=== PATIENT | female | born 1950 | race Caucasian/White ===

== ENCOUNTER 2018-06-14 18:15 | Observation (INO) ==
--- NOTE | 2018-06-14 18:50 | Emergency Department Note ---
Disposition Clinical Impression: Atrial flutter Qualifiers: Atrial flutter type: unspecified Qualified Code(s): I48.92 - Unspecified atrial flutter Chest pain Qualifiers: Chest pain type: unspecified Qualified Code(s): R07.9 - Chest pain, unspecified Disposition: Admitted As Inpatient Condition: Good Referrals: Juan C Hawk DO [Primary Care Provider] - Forms: ED Satisfaction Letter Time of Disposition: 21:09 Arrhythmia/Palpitations HPI - General Chief Complaint: ED Arrhythmia/Palpitations Stated Complaint: A-Fib Time Seen by Provider: 06/14/18 18:36 Source: patient Mode of arrival: ambulatory Limitations: no limitations Nursing Notes Reviewed: Yes Vital Signs Reviewed: Yes - History of Present Illness HPI Narrative: Patient is a 67-year-old female with past medical history of hypertension. She presents today due to new onset A. fib/A flutter. Patient states that she has been having episodes intermittently of chest discomfort, left-sided, occur with both exertion and at rest, described as pressure with no radiation, lasted for a few minutes and then goes away. She is also been monitoring her blood pressure and states that her blood pressure has been high. She has been feeling generally fatigued. She went to urgent care today for evaluation, she states that she had a urinalysis and was told that she had a UTI. On screening EKG, she was found to have new onset A. fib/A flutter. She denies any current chest discomfort, shortness breath, nausea, vomiting, fevers, diarrhea, abdominal pain. Denies any productive cough or URI symptoms. Is not currently on any blood thinners. Denies any previous [place] history, stent placement. - Related Data Home Medications Medication Instructions Recorded Confirmed Citalopram Hydrobromide 40 mg PO DAILY 03/24/17 06/14/18 [Citalopram HBr] Naproxen [Naprosyn] 500 mg PO BID 03/24/17 06/14/18 Rosuvastatin [Crestor] 20 mg PO HS 03/24/17 06/14/18 Triamterene/Hydrochlorothiazid 1 cap PO DAILY 03/24/17 06/14/18 [Dyazide 37.5-25 Capsule] Iron Polysaccharide Complex [Pro 180 mg PO DAILY 06/14/18 06/14/18 Fe] Lisinopril [Zestril] 10 mg PO DAILY 06/14/18 06/14/18 Metformin HCl [Metformin HCl] 1,000 mg PO BID 06/14/18 06/14/18 Metoprolol [Lopressor] 25 mg PO BID 06/14/18 06/14/18 Omeprazole [PriLOSEC] 20 mg PO BID 06/14/18 06/14/18 Allergies Allergy/AdvReac Type Severity Reaction Status Date / Time No Known Allergies Allergy Verified 06/14/18 19:42 All systems ED: reviewed and negative except as stated. Constitutional: Denies: fever Cardiovascular: Reports: chest pain. Denies: palpitations Respiratory: Reports: dyspnea. Denies: cough, sputum production Gastrointestinal: Denies: abdominal pain, nausea, vomiting, diarrhea Integumentary: Denies: rash Neurological: Denies: headache, weakness, numbness, paresthesias Psychiatric: Denies: anxiety Past Medical History - Past Medical History Attestation: Yes The following information was validated with the patient. Source: patient Medical history: Reports: asthma, diabetes, GERD, hyperlipidemia, hypertension Surgical history: Reports: cholecystectomy, hysterectomy, orthopedic, other Psychiatric history: Reports: depression - Social History Smoking Status: Never smoker Smokeless Tobacco Status: No Alcohol use: Reports: none Drug use: Reports: none Physical Exam - General Limitations: no limitations General appearance: alert - Head Head exam: atraumatic, normocephalic, normal inspection - Eye Eye exam: Present: normal appearance, PERRL, EOMI - ENT ENT exam: normal exam, normal oropharynx, mucous membranes moist - Neck Neck exam: Present: normal inspection, full ROM, trachea midline - Chest Chest inspection: Present: normal inspection, symmetric chest wall rise - Respiratory Respiratory exam: Present: normal lung sounds bilaterally - Cardiovascular Cardiovascular exam: Present: normal rhythm, irregular rhythm, normal heart sounds - Abdominal Exam Abdominal exam: Present: soft, Non-Tender. Absent: tenderness, distention, guarding, rebound, rigidity - Extremities Exam Extremities exam: Present: normal inspection, full ROM. Absent: tenderness, pedal edema - Neurological Exam Neurological exam: Present: alert, oriented X3 - Expanded Neurological Exam Coma Scale Eye Opening: Spontaneous Coma Scale Motor Response: Obeys Commands Coma Scale Verbal Response: Oriented Coma Scale Total: 15 - Psychiatric Psychiatric exam: Present: normal affect, normal mood - Skin Skin exam: Present: warm, dry, intact, normal color Course Course Narrative: Physical workup shows negative troponin, negative urinalysis, no major electrolyte abnormality. EKG shows a flutter with no acute ST elevation or depression. Patient currently asymptomatic. Chest x-ray negative for any acute cardio pulmonary process. We will admit the patient for further care at this time. Xarelto given in the ER. Currently rate controlled. Vital Signs Temperature 97.7 F 06/14/18 18:26 Pulse Rate 102 06/14/18 18:26 Respiratory Rate 20 06/14/18 18:26 Blood Pressure 166/98 06/14/18 18:26 O2 Sat by Pulse Oximetry 97 06/14/18 18:26 Temperature 97.7 F 06/14/18 18:26 Pulse Rate 90 06/14/18 20:34 Respiratory Rate 20 06/14/18 20:34 Blood Pressure 164/106 06/14/18 20:34 O2 Sat by Pulse Oximetry 97 06/14/18 20:34 Oxygen Delivery Oxygen Delivery Room Air Arrhythmia/Palpitations - [facility] Narrative Medical decision making narrative: Physical workup shows negative troponin, negative urinalysis, no major electrolyte abnormality. EKG shows a flutter with no acute ST elevation or depression. Patient currently asymptomatic. Chest x-ray negative for any acute cardio pulmonary process. We will admit the patient for further care at this time. Xarelto given in the ER. Currently rate controlled. - Medical Records Medical records reviewed: Yes I reviewed the patient's medical records. - Lab Data Lab results reviewed: Yes I reviewed the patient's lab results. Result diagrams: 06/14/18 19:07 06/14/18 19:07 Lab Results 06/14/18 06/14/18 06/14/18 Range/Units 19:07 19:07 19:07 WBC 8.9 (4.3-11.1) K/mcL RBC 4.19 (3.82-4.97) M/mcL Hgb 10.2 L (11.5-15.4) g/dL Hct 32.1 L (35.3-44.9) % MCV 76.6 L (83.0-100.0) fL MCH 24.3 L (28.0-33.3) pg MCHC 31.8 (31.6-35.5) g/dL RDW 15.8 H (11.5-14.5) % Plt Count 225 (140-400) K/mcL MPV 9.8 (9.4-12.4) fL Immature Gran % 0.3 (0-4) % Seg Neutrophils % 62.5 % Lymphocytes % 24.3 % Monocytes % 9.6 % Eosinophils % 2.6 % Basophils % 0.7 % Neutrophils # 5.6 (1.6-8.9) K/mcL Lymphocytes # 2.2 (0.6-4.6) K/mcL Monocytes # 0.9 (0.0-1.3) K/mcL Eosinophils # 0.2 (0.0-0.6) K/mcL Basophils # 0.1 (0.0-0.2) K/mcL PT 11.3 (9.4-12.1) Seconds INR 1.0 APTT 33.8 (26.0-36.0) Seconds Sodium 138 (136-145) mEq/L Potassium 3.4 L (3.5-5.1) mEq/L Chloride 101 (98-107) mEq/L Carbon Dioxide 25 (23-29) mEq/L BUN 13 (8-23) mg/dL Creatinine 0.67 (0.60-1.20) mg/dL Est GFR ( Amer) > 60 (> 60) Est GFR (Non-Af Amer) > 60 (> 60) BUN/Creatinine Ratio 19 (6-26) Glucose 124 H (70-105) mg/dL Calculated Osmolality 288 (280-300) Calcium 9.6 (8.6-10.3) mg/dL Troponin I < 0.03 (< 0.04) ng/mL TSH 3.417 (0.340-5.600) mcIU/mL Urine Color (Yellow) Urine Clarity (Clear) Urine pH (5.0-8.0) pH Units Ur Specific [place] (1.010-1.025) Urine Protein (Neg-Trace) mg/dL Urine Glucose (UA) (Normal) mg/dL Urine Ketones (Negative) mg/dL Urine Blood (Negative) Urine Nitrite (Negative) Urine Bilirubin (Negative) Urine Urobilinogen (Normal) mg/dL Ur Leukocyte Esterase (Negative) Urine Microscopic RBC (0-3) per hpf Urine Microscopic WBC (0-3) per hpf Ur Squamous Epith Cells (None-Few) per lpf Urine Bacteria (None-Few) per hpf Hyaline Casts (None-Few) per lpf Ur Culture Indicated? (NO) 06/14/18 Range/Units 19:58 WBC (4.3-11.1) K/mcL RBC (3.82-4.97) M/mcL Hgb (11.5-15.4) g/dL Hct (35.3-44.9) % MCV (83.0-100.0) fL MCH (28.0-33.3) pg MCHC (31.6-35.5) g/dL RDW (11.5-14.5) % Plt Count (140-400) K/mcL MPV (9.4-12.4) fL Immature Gran % (0-4) % Seg Neutrophils % % Lymphocytes % % Monocytes % % Eosinophils % % Basophils % % Neutrophils # (1.6-8.9) K/mcL Lymphocytes # (0.6-4.6) K/mcL Monocytes # (0.0-1.3) K/mcL Eosinophils # (0.0-0.6) K/mcL Basophils # (0.0-0.2) K/mcL PT (9.4-12.1) Seconds INR APTT (26.0-36.0) Seconds Sodium (136-145) mEq/L Potassium (3.5-5.1) mEq/L Chloride (98-107) mEq/L Carbon Dioxide (23-29) mEq/L BUN (8-23) mg/dL Creatinine (0.60-1.20) mg/dL Est GFR ( Amer) (> 60) Est GFR (Non-Af Amer) (> 60) BUN/Creatinine Ratio (6-26) Glucose (70-105) mg/dL Calculated Osmolality (280-300) Calcium (8.6-10.3) mg/dL Troponin I (< 0.04) ng/mL TSH (0.340-5.600) mcIU/mL Urine Color Yellow (Yellow) Urine Clarity Clear (Clear) Urine pH 6.0 (5.0-8.0) pH Units Ur Specific [place] 1.011 (1.010-1.025) Urine Protein Negative (Neg-Trace) mg/dL Urine Glucose (UA) Normal (Normal) mg/dL Urine Ketones Negative (Negative) mg/dL Urine Blood Negative (Negative) Urine Nitrite Negative (Negative) Urine Bilirubin Negative (Negative) Urine Urobilinogen Normal (Normal) mg/dL Ur Leukocyte Esterase Trace H (Negative) Urine Microscopic RBC 0-3 (0-3) per hpf Urine Microscopic WBC 0-3 (0-3) per hpf Ur Squamous Epith Cells Many H (None-Few) per lpf Urine Bacteria None Seen (None-Few) per hpf Hyaline Casts None Seen (None-Few) per lpf Ur Culture Indicated? NO. A (NO) - Radiology Data Radiology results reviewed: Yes I reviewed the patient's radiology results. - EKG Data EKG attestation: Yes I reviewed and interpreted this EKG. EKG results narrative: 06/14/2018 18:16. A flutter. Rate 94. QRS 93. QTC 406. Normal axis. No acute ST elevation or depression. S.B.A.R. - S.B.A.R. Situation: Demographics, MOA Background: Presenting Complaint, Relevant PMH, Meds, & Allergies Assessment: Vital Signs, Course and respsone to treatment, Exam Concerns, Patient/Family Expectation, Pertinant Lab Results Recommendation: Barrier(s) to disposition, Recommendation based on pending studies, treatments, or consults S.B.A.R. Report Given to: Dr. Marquez
--- NOTE | 2018-06-14 19:13 | Emergency Department Note ---
Disposition Clinical Impression: Atrial flutter Qualifiers: Atrial flutter type: unspecified Qualified Code(s): I48.92 - Unspecified atrial flutter Chest pain Qualifiers: Chest pain type: unspecified Qualified Code(s): R07.9 - Chest pain, unspecified Disposition: Admitted As Inpatient Condition: Good General Adult HPI - General Chief complaint: ED Arrhythmia/Palpitations Stated complaint: A-Fib Time Seen by Provider: 06/14/18 18:36 Source: patient Mode of arrival: ambulatory Limitations: no limitations - History of Present Illness Pain Scale: 8 - Related Data Home Medications Medication Instructions Recorded Confirmed Citalopram Hydrobromide 40 mg PO DAILY 03/24/17 06/14/18 [Citalopram HBr] Naproxen [Naprosyn] 500 mg PO BID 03/24/17 06/14/18 Rosuvastatin [Crestor] 20 mg PO HS 03/24/17 06/14/18 Triamterene/Hydrochlorothiazid 1 cap PO DAILY 03/24/17 06/14/18 [Dyazide 37.5-25 Capsule] Iron Polysaccharide Complex [Pro 180 mg PO DAILY 06/14/18 06/14/18 Fe] Lisinopril [Zestril] 10 mg PO DAILY 06/14/18 06/14/18 Metformin HCl [Metformin HCl] 1,000 mg PO BID 06/14/18 06/14/18 Metoprolol [Lopressor] 25 mg PO BID 06/14/18 06/14/18 Omeprazole [PriLOSEC] 20 mg PO BID 06/14/18 06/14/18 Allergies Allergy/AdvReac Type Severity Reaction Status Date / Time No Known Allergies Allergy Verified 06/14/18 19:42 Past Medical History - Past Medical History Medical history: Reports: asthma, diabetes, GERD, hyperlipidemia, hypertension Surgical history: Reports: cholecystectomy, hysterectomy, orthopedic, other Psychiatric history: Reports: depression - Social History Smoking Status: Never smoker Smokeless Tobacco Status: No Alcohol use: Reports: none Drug use: Reports: none Physical Exam - General Limitations: no limitations General appearance: alert Course Vital Signs Temperature 97.7 F 06/14/18 18:26 Pulse Rate 102 06/14/18 18:26 Respiratory Rate 20 06/14/18 18:26 Blood Pressure 166/98 06/14/18 18:26 O2 Sat by Pulse Oximetry 97 07/30/18 18:26 Temperature 97.7 F 06/14/18 18:26 Pulse Rate 74 06/14/18 22:12 Respiratory Rate 12 06/14/18 22:12 Blood Pressure 164/94 06/14/18 22:12 O2 Sat by Pulse Oximetry 99 06/14/18 22:12 Oxygen Delivery Oxygen Delivery Room Air Medical Decision Making - Lab Data Result diagrams: 06/14/18 19:07 06/14/18 19:07 Lab Results 06/14/18 06/14/18 06/14/18 Range/Units 19:07 19:07 19:07 WBC 8.9 (4.3-11.1) K/mcL RBC 4.19 (3.82-4.97) M/mcL Hgb 10.2 L (11.5-15.4) g/dL Hct 32.1 L (35.3-44.9) % MCV 76.6 L (83.0-100.0) fL MCH 24.3 L (28.0-33.3) pg MCHC 31.8 (31.6-35.5) g/dL RDW 15.8 H (11.5-14.5) % Plt Count 225 (140-400) K/mcL MPV 9.8 (9.4-12.4) fL Immature Gran % 0.3 (0-4) % Seg Neutrophils % 62.5 % Lymphocytes % 24.3 % Monocytes % 9.6 % Eosinophils % 2.6 % Basophils % 0.7 % Neutrophils # 5.6 (1.6-8.9) K/mcL Lymphocytes # 2.2 (0.6-4.6) K/mcL Monocytes # 0.9 (0.0-1.3) K/mcL Eosinophils # 0.2 (0.0-0.6) K/mcL Basophils # 0.1 (0.0-0.2) K/mcL PT 11.3 (9.4-12.1) Seconds INR 1.0 APTT 33.8 (26.0-36.0) Seconds Sodium 138 (136-145) mEq/L Potassium 3.4 L (3.5-5.1) mEq/L Chloride 101 (98-107) mEq/L Carbon Dioxide 25 (23-29) mEq/L BUN 13 (8-23) mg/dL Creatinine 0.67 (0.60-1.20) mg/dL Est GFR ( Amer) > 60 (> 60) Est GFR (Non-Af Amer) > 60 (> 60) BUN/Creatinine Ratio 19 (6-26) Glucose 124 H (70-105) mg/dL Calculated Osmolality 288 (280-300) Calcium 9.6 (8.6-10.3) mg/dL Troponin I < 0.03 (< 0.04) ng/mL TSH 3.417 (0.340-5.600) mcIU/mL Urine Color (Yellow) Urine Clarity (Clear) Urine pH (5.0-8.0) pH Units Ur Specific [place] (1.010-1.025) Urine Protein (Neg-Trace) mg/dL Urine Glucose (UA) (Normal) mg/dL Urine Ketones (Negative) mg/dL Urine Blood (Negative) Urine Nitrite (Negative) Urine Bilirubin (Negative) Urine Urobilinogen (Normal) mg/dL Ur Leukocyte Esterase (Negative) Urine Microscopic RBC (0-3) per hpf Urine Microscopic WBC (0-3) per hpf Ur Squamous Epith Cells (None-Few) per lpf Urine Bacteria (None-Few) per hpf Hyaline Casts (None-Few) per lpf Ur Culture Indicated? (NO) 06/14/18 Range/Units 19:58 WBC (4.3-11.1) K/mcL RBC (3.82-4.97) M/mcL Hgb (11.5-15.4) g/dL Hct (35.3-44.9) % MCV (83.0-100.0) fL MCH (28.0-33.3) pg MCHC (31.6-35.5) g/dL RDW (11.5-14.5) % Plt Count (140-400) K/mcL MPV (9.4-12.4) fL Immature Gran % (0-4) % Seg Neutrophils % % Lymphocytes % % Monocytes % % Eosinophils % % Basophils % % Neutrophils # (1.6-8.9) K/mcL Lymphocytes # (0.6-4.6) K/mcL Monocytes # (0.0-1.3) K/mcL Eosinophils # (0.0-0.6) K/mcL Basophils # (0.0-0.2) K/mcL PT (9.4-12.1) Seconds INR APTT (26.0-36.0) Seconds Sodium (136-145) mEq/L Potassium (3.5-5.1) mEq/L Chloride (98-107) mEq/L Carbon Dioxide (23-29) mEq/L BUN (8-23) mg/dL Creatinine (0.60-1.20) mg/dL Est GFR ( Amer) (> 60) Est GFR (Non-Af Amer) (> 60) BUN/Creatinine Ratio (6-26) Glucose (70-105) mg/dL Calculated Osmolality (280-300) Calcium (8.6-10.3) mg/dL Troponin I (< 0.04) ng/mL TSH (0.340-5.600) mcIU/mL Urine Color Yellow (Yellow) Urine Clarity Clear (Clear) Urine pH 6.0 (5.0-8.0) pH Units Ur Specific [place] 1.011 (1.010-1.025) Urine Protein Negative (Neg-Trace) mg/dL Urine Glucose (UA) Normal (Normal) mg/dL Urine Ketones Negative (Negative) mg/dL Urine Blood Negative (Negative) Urine Nitrite Negative (Negative) Urine Bilirubin Negative (Negative) Urine Urobilinogen Normal (Normal) mg/dL Ur Leukocyte Esterase Trace H (Negative) Urine Microscopic RBC 0-3 (0-3) per hpf Urine Microscopic WBC 0-3 (0-3) per hpf Ur Squamous Epith Cells Many H (None-Few) per lpf Urine Bacteria None Seen (None-Few) per hpf Hyaline Casts None Seen (None-Few) per lpf Ur Culture Indicated? NO. A (NO) Attestation Statement - Attestation Attestation: I examined this patient and my medical decision-making was reviewed with the Resident Physician. I agree with the documented findings, disposition and treatment plan as described except to the extent set forth below. Patient presents to the emergency department in atrial fibrillation. Patient was going to see her primary doctor because her blood pressure been running high. They found that she was in new onset A. fib. Patient states she started feeling bad on . She is having "pain in her left boob", tingling in her left arm and generalized weakness. Nausea and vomiting. No diarrhea. No fever. No cough. She is not having any neuro symptoms at this time. Examination shows her neurologically intact 5 out of 5 strength in bilateral upper extremities. Heart rate controlled but irregular. Plan. Patient is a new onset A. fib. Cardiac workup and admission. Patient is neurologically intact at this time.
[2018-06-14 19:28] LABS: Basophils # 0.1 K/mcL (0.0-0.2); Basophils % 0.7 %; Eosinophils # 0.2 K/mcL (0.0-0.6); Eosinophils % 2.6 %; Hematocrit 32.1 % (35.3-44.9); Hemoglobin 10.2 g/dL (11.5-15.4); Immature Granulocytes % 0.3 % (0-4); Lymphocytes # 2.2 K/mcL (0.6-4.6); Lymphocytes % 24.3 %; Mean Corpuscular HGB Conc 31.8 g/dL (31.6-35.5); Mean Corpuscular Hemoglobin 24.3 pg (28.0-33.3); Mean Corpuscular Volume 76.6 fL (83.0-100.0); Mean Platelet Volume 9.8 fL (9.4-12.4); Monocytes # 0.9 K/mcL (0.0-1.3); Monocytes % 9.6 %; Neutrophils # 5.6 K/mcL (1.6-8.9); Platelet Count 225 K/mcL (140-400); Red Blood Count 4.19 M/mcL (3.82-4.97); Red Cell Distribution Width 15.8 % (11.5-14.5); Segmented Neutrophils % 62.5 %
[2018-06-14 19:30] LABS: Prothrombin Time 11.3 Seconds (9.4-12.1)
[2018-06-14 19:33] LABS: Activated Partial Thrombo Time 33.8 Seconds (26.0-36.0)
[2018-06-14 19:45] LABS: BUN/Creatinine Ratio 19 (6-26); Blood Urea Nitrogen 13 mg/dL (8-23); Calcium 9.6 mg/dL (8.6-10.3); Carbon Dioxide 25 mEq/L (23-29); Chloride 101 mEq/L (98-107); Glucose 124 mg/dL (70-105); Osmolality,Calculated 288 (280-300); Potassium 3.4 mEq/L (3.5-5.1); Sodium 138 mEq/L (136-145); eGFR For Non-African Americans > 60 (> 60)
[2018-06-14 19:53] LABS: Thyroid Stimulating Hormone 3.417 mcIU/mL (0.340-5.600)
[2018-06-14 20:07] LABS: Bilirubin,Urine Negative (Negative); Blood,Urine Negative (Negative); Clarity,Urine Clear (Clear); Color,Urine Yellow (Yellow); Glucose,Urine (UA) Normal (Normal); Ketones,Urine Negative (Negative); Leukocyte Esterase,Urine Trace (Negative); Nitrite,Urine Negative (Negative); Protein,Urine Negative (Neg-Trace); Specific Gravity,Urine 1.011 (1.010-1.025); Urobilinogen,Urine Normal (Normal)
[2018-06-14 20:09] LABS: Bacteria,Urine None Seen per hpf (None-Few); Hyaline Casts,Urine None Seen per lpf (None-Few); RBC,Urine 0-3 per hpf (0-3); Squamous Epithelial Cell,Urine Many per lpf (None-Few); WBC,Urine 0-3 per hpf (0-3)
[2018-06-14 20:32] LABS: Troponin I < 0.03 ng/mL (< 0.04)
[2018-06-14] MEDS ORDERED: *HR* Rivaroxaban 10 MG TABLET PO ONE (21:00)
[2018-06-14] MEDS ORDERED: *HR* Metoprolol 5 MG/5 ML VIAL IVP STA (22:03)
[2018-06-14] MEDS ORDERED: *HR* Metoprolol 5 MG/5 ML VIAL IVP PRN (22:04)
[2018-06-14] MEDS ORDERED: Dextrose Gel 15 GM/37.5 ML TUBE PO PRN ×2 (22:20)
[2018-06-14] MEDS ORDERED: D5% in Water 1,000 ML IVC PRN (22:20)
[2018-06-14] MEDS ORDERED: *HR* Dextrose 50 % in Water (Syg) 50 ML SYRINGE IVP PRN (22:20)
[2018-06-14] MEDS ORDERED: Insulin LISPRO 300 UNITS/3 ML VIAL SQ SCH (22:30)
[2018-06-14] MEDS ORDERED: traMADol 50 MG TABLET PO PRN (23:37)
[2018-06-14] MEDS ORDERED: Acetaminophen 325 MG TABLET PO PRN (23:37)
[2018-06-14] MEDS ORDERED: Naloxone 0.4 MG/ML INJ IVP PRN (23:37)
--- NOTE | 2018-06-14 23:56 | Internal Med History&Physical ---
Date of Encounter: 06/14/18 Time of Encounter: 22:57 Internal Medicine - H&P: HPI Chief complaint: "Told to come in for high blood pressure and Afib" Admitted From: Emergency Dept Plans for Post Hospital Care: Home History of present illness: Ms. Rg is a 67 year old female who presented to ED at request of clinic physician due to elevated blood pressure and atrial fibrillation. She states that she has been feeling "bad" since last . She thought that her blood pressure was elevated. She states that she was also having some headache and "sick to stomach." She had some mild chest pain today. She was out-of- town over the weekend, and decided to go into clinic after getting back home. She was noted to have hypertension and new onset atrial fibrillation in clinic today. She was told to come to ED here. In the ED, patient's HR was 102 on arrival. It subsequently remained in the 90s. BP ranged in 140-160s/90-100s. EKG showed atrial fibrillation with rate of 94; no ST elevation. Initial troponin was WNL. CXR showed no acute cardiopulmonary process. She had mild hypokalemia to 3.4; she states that she has a chronic history of this. She was started on xarelto in the ED. I was asked to admit patient for new onset atrial fibrillation. At the time of my examination, patient denies fever, chills, chest pain, SOB, nausea, vomiting, abdominal pain, changes in bladder, or changes in bowels. She does have a mild headache at this time. She has no other complaints. Past Med Surg Social Fam HX - Past Medical History Medical history: asthma, diabetes, GERD, hyperlipidemia, hypertension Additional medical history: Anemia. Polyneuropathy. Idiopathic peripheral neuropathy. Cervical Radiculapathy Psychiatric history: depression - Past Surgical History Surgical History: cholecystectomy, hysterectomy, orthopedic, other Additional surgical history: knee replacement,tonsillectomy - Social History Smoking Status: Never smoker Smokeless Tobacco Status: No Alcohol use: none Drug use: none - Additional Family History Additional family history: No significant family history per patient. Internal Medicine - H&P: Meds Citalopram Hydrobromide [Citalopram HBr] 40 mg PO DAILY 03/24/17 [History] Naproxen [Naprosyn] 500 mg PO BID 03/24/17 [History] Rosuvastatin [Crestor] 20 mg PO HS 03/24/17 [History] Triamterene/Hydrochlorothiazid [Dyazide 37.5-25 Capsule] 1 cap PO DAILY [History] Iron Polysaccharide Complex [Pro Fe] 180 mg PO DAILY 06/14/18 [History] Lisinopril [Zestril] 10 mg PO DAILY 06/14/18 [History] Metformin HCl [Metformin HCl] 1,000 mg PO BID 06/14/18 [History] Metoprolol [Lopressor] 25 mg PO BID 06/14/18 [History] Omeprazole [PriLOSEC] 20 mg PO BID 06/14/18 [History] 3 Allergy/AdvReac Type Severity Reaction Status Date / Time No Known Allergies Allergy Verified 06/14/18 19:42 All Systems PM: A 10-system review of systems was performed and is negative for pertinent findings except as documented above in the HPI. - Constitutional Vitals: Temp Pulse Resp BP Pulse Ox 97.7 F 74 12 164/94 99 06/14/18 18:26 06/14/18 22:12 06/14/18 22:12 06/14/18 22:12 06/14/18 22:12 General appearance: Present: cooperative, A&O X 3, pleasant, no acute distress, obese, answers questions appropriately - Head Head exam: Present: atraumatic, normocephalic - Eye Eye exam: Present: EOMI, PERRL. Absent: conjunctival injection, nystagmus, scleral icterus - ENT ENT exam: Present: mucous membranes moist, normal external ear exam, normal oropharynx - Neck Neck exam general surgery: Present: supple, trachea midline. Absent: lymphadenopathy, tenderness, thyromegaly - Respiratory Respiratory exam: Present: CTAB. Absent: accessory muscle use, rales, rhonchi, wheezes Additional comments: Normal WOB - Cardiovascular Cardiovascular exam: Present: RRR, +S1, +S2. Absent: diastolic murmur, gallop, rubs, systolic murmur Additional comments: No BLE edema - GI/Abdominal GI/Abdominal exam: Present: normal bowel sounds, soft. Absent: distended, hepatomegaly, mass, splenomegaly, tenderness - Neurological Exam Neurological exam: Present: alert, CN II-XII intact, oriented X3, no focal deficits, strengths equal and symetr throughout. Absent: motor sensory deficit , facial droop, speech deficit - Psychiatric Psychiatric exam: Present: normal affect, normal mood. Absent: agitated, anxious, depressed - Skin Skin exam: Present: dry, intact, warm. Absent: cyanosis, rash Internal Med - H&P Results - Labs CBC & Chem 7: 06/14/18 19:07 06/14/18 19:07 - VTE Documentation of Mechanical Device: Intermittent pneumatic compression device Contraindication No Overlap Therapy: Admin of oral Factor Xa Inhibitor - Assessment and plan (1) Atrial fibrillation Current Visit: Yes Status: Acute Assessment and plan: Patient with new onset atrial fibrillation. Rate is controlled at this time. Patient is asymptomatic except mild headache. Admit for observation with telemetry. She was started on xarelto in the ED; we will continue this for anticoagulation. Initial troponin was WNL; we will trend x 3 given patient's previous symptom of chest pain. Continue home PO metoprolol; this dose may need to be adjusted based on her heart rate. Start IV metoprolol PRN for tachycardia/HTN. Continue home anti-hypertensives. We will repeat EKG in AM. Obtain ECHO in AM. Consider cardiology consult if needed. Will consult social work to determine insurance coverage of NOAC. Repeat labwork in AM. Qualifiers: Atrial fibrillation type: unspecified Qualified Code(s): I48.91 - Unspecified atrial fibrillation (2) Chest pain Current Visit: Yes Status: Acute Assessment and plan: Resolved. Continue telemetry. Trend troponin x 3. Obtain ECHO in AM. Continue supplemental oxygen and pain control PRN. Qualifiers: Chest pain type: unspecified Qualified Code(s): R07.9 - Chest pain, unspecified (3) Hypertension Current Visit: Yes Status: Chronic Assessment and plan: BP improved. Continue home anti-hypertensives. Start metoprolol IV PRN tachycardia/HTN as per above. Monitor vitals closely. Qualifiers: Hypertension type: essential hypertension Qualified Code(s): I10 - Essential (primary) hypertension (4) HLD (hyperlipidemia) Current Visit: Yes Status: Chronic Assessment and plan: Continue home medications. Qualifiers: Hyperlipidemia type: mixed hyperlipidemia Qualified Code(s): E78.2 - Mixed hyperlipidemia (5) Depression Current Visit: Yes Status: Chronic Assessment and plan: Continue home medications. Qualifiers: Depression Type: other depression Qualified Code(s): F32.89 - Other specified depressive episodes (6) Diabetes mellitus type II, controlled, with no complications Current Visit: Yes Status: Chronic Assessment and plan: Hold home PO medications. Start accuchecks and low dose SSI QID AC/HS. Start cardiac/diabetic diet. Qualifiers: Diabetes mellitus emt intermediate insulin use: without halfway use Qualified Code(s): E11.9 - Type 2 diabetes mellitus without complications (7) GERD (gastroesophageal reflux disease) Current Visit: Yes Status: Chronic Assessment and plan: Continue home medications. Qualifiers: Esophagitis presence: without esophagitis Qualified Code(s): K21.9 - Gastro -esophageal reflux disease without esophagitis (8) Iron deficiency anemia Current Visit: Yes Status: Chronic Assessment and plan: Continue home medications. Qualifiers: Iron deficiency anemia type: unspecified iron deficiency Qualified Code(s) : D50.9 - Iron deficiency anemia, unspecified (9) DVT prophylaxis Current Visit: Yes Status: Acute Assessment and plan: Start SCDs. Continue xarelto as per above. - Time Spent With Patient Total time spent is greater than 50% in coordination of care (as documented) at patient's floor/unit and/or counseling patient: less than 15 minutes
[2018-06-15 00:47] LABS: Basophils # 0.1 K/mcL (0.0-0.2); Basophils % 0.5 %; Eosinophils # 0.3 K/mcL (0.0-0.6); Eosinophils % 3.1 %; Hemoglobin 10.7 g/dL (11.5-15.4); Immature Granulocytes % 0.3 % (0-4); Lymphocytes # 2.7 K/mcL (0.6-4.6); Lymphocytes % 26.6 %; Mean Corpuscular HGB Conc 31.5 g/dL (31.6-35.5); Mean Corpuscular Hemoglobin 24.2 pg (28.0-33.3); Mean Corpuscular Volume 76.7 fL (83.0-100.0); Monocytes # 0.9 K/mcL (0.0-1.3); Monocytes % 8.8 %; Neutrophils # 6.3 K/mcL (1.6-8.9); Platelet Count 231 K/mcL (140-400); Red Blood Count 4.43 M/mcL (3.82-4.97); Red Cell Distribution Width 15.8 % (11.5-14.5); Segmented Neutrophils % 60.7 %
[2018-06-15 01:06] LABS: Chol/HDL Ratio 2.5 (0-4.9); Magnesium 1.2 mg/dL (1.6-2.6)
[2018-06-15 01:07] LABS: BUN/Creatinine Ratio 18 (6-26); Blood Urea Nitrogen 13 mg/dL (8-23); Calcium 9.4 mg/dL (8.6-10.3); Carbon Dioxide 25 mEq/L (23-29); Chloride 101 mEq/L (98-107); Glucose 91 mg/dL (70-105); Osmolality,Calculated 286 (280-300); Potassium 3.3 mEq/L (3.5-5.1); Sodium 138 mEq/L (136-145); eGFR For Non-African Americans > 60 (> 60)
[2018-06-15] MEDS: Insulin LISPRO 300 UNITS/3 ML VIAL SQ SCH ×2 (08:17→12:08)
[2018-06-15] MEDS ORDERED: Iron Polysaccharide Complex 150 MG CAPSULE PO SCH (09:00)
--- NOTE | 2018-06-15 12:26 | Discharge Summary ---
- NOTES TO OUTPATIENT PROVIDER Notes to Outpatient Provider: Follow up with PCP for INR check, new diagnosis of Afib with hypomag and hypok. Electrolytes replaced inpatient, HR controlled on patient's home dose of lopressor. TSH was WNL. ECHO was WNL Orders not resulted at time of discharge: Pending orders 06/14/18 22:00 Drug Screen, Urine [UCHEM] Stat 06/15/18 06:00 ECG 12 lead ECG [ECG] AM 0600 06/15/18 13:00 Troponin I Q6H 06/16/18 04:00 Basic Metabolic Panel AM 0400 Magnesium AM 0400 Date of Encounter: 06/15/18 Time of Encounter: 12:25 - Discharge Diagnosis (1) Chest pain Priority: Primary Status: Acute Qualifiers: Chest pain type: unspecified Qualified Code(s): R07.9 - Chest pain, unspecified (2) Atrial fibrillation Priority: Primary Status: Acute Qualifiers: Atrial fibrillation type: unspecified Qualified Code(s): I48.91 - Unspecified atrial fibrillation (3) Hypertension Priority: Secondary Status: Chronic Qualifiers: Hypertension type: essential hypertension Qualified Code(s): I10 - Essential (primary) hypertension (4) HLD (hyperlipidemia) Priority: Secondary Status: Chronic Qualifiers: Hyperlipidemia type: mixed hyperlipidemia Qualified Code(s): E78.2 - Mixed hyperlipidemia (5) Depression Priority: Secondary Status: Chronic Qualifiers: Depression Type: other depression Qualified Code(s): F32.89 - Other specified depressive episodes (6) Diabetes mellitus type II, controlled, with no complications Priority: Secondary Status: Chronic Qualifiers: Diabetes mellitus extermination supervisor insulin use: without extermination supervisor use Qualified Code(s): E11.9 - Type 2 diabetes mellitus without complications (7) GERD (gastroesophageal reflux disease) Priority: Secondary Status: Chronic Qualifiers: Esophagitis presence: without esophagitis Qualified Code(s): K21.9 - Gastro -esophageal reflux disease without esophagitis (8) Iron deficiency anemia Priority: Secondary Status: Chronic Qualifiers: Iron deficiency anemia type: unspecified iron deficiency Qualified Code(s) : D50.9 - Iron deficiency anemia, unspecified (9) DVT prophylaxis Priority: Primary Status: Acute Hospital course: Ms. Rg is a 67 year old female with PMH of GERD, DM, HLD, HTN who was placed on observation for newly diagnosed atrial fibrillation Patient had presented to her own PCP for complains of palpitations and chest pain and was found to be in Afib and had uncontrolled blood pressure. She also had concerns for possible UTI In the ED, patient's HR was 102 on arrival. It subsequently remained in the 90s without intervention. BP ranged in 140-160s/90-100s. EKG showed atrial fibrillation with rate of 94; no ST elevation. Further work up including 3 sets of troponin were WNL. CXR showed no acute cardiopulmonary process. She had mild hypokalemia to 3.4; she states that she has a chronic history of this. She was started on xarelto in the ED. She was placed on observation and further work up including a urinalysis was negative She did have mild hypomagnessemia and hypokalemia-electrolytes were replaced Patient's HR remained controlled on her home medications ECHO done showed preserved EF with no valvular abnormalities and normal wall motion Patient was started on Xarelto but per pharmacy, co-pay was 350 USD per month Patient agreed to use Warfarin for anticoagulation , recommend follow up with PCP within the next 5 days for INR check Her other chronic medical conditions remained stable. Plan of care discussed and patient verbalized understanding, discharged home in clinically and hemodynamically stable condition Discharge discussed with: patient, nurse, case management - Time Spent with Patient Total time spent providing and/or coordinating discharge services: Greater than 30 minutes - Discharge Medications Prescriptions: Warfarin [Coumadin] 4 mg PO 1800 #8 tablet Home Medications: Citalopram Hydrobromide [Citalopram HBr] 40 mg PO DAILY 03/24/17 [History] Naproxen [Naprosyn] 500 mg PO BID 03/24/17 [History] Rosuvastatin [Crestor] 20 mg PO HS 03/24/17 [History] Triamterene/Hydrochlorothiazid [Dyazide 37.5-25 Capsule] 1 cap PO DAILY [History] Iron Polysaccharide Complex [Pro Fe] 180 mg PO DAILY 06/14/18 [History] Lisinopril [Zestril] 10 mg PO DAILY 06/14/18 [History] Metformin HCl [Metformin HCl] 1,000 mg PO BID 06/14/18 [History] Metoprolol [Lopressor] 25 mg PO BID 06/14/18 [History] Omeprazole [PriLOSEC] 20 mg PO BID 06/14/18 [History] Warfarin [Coumadin] 4 mg PO 1800 #8 tablet 06/15/18 [Rx] Allergies/Adverse Reactions: 3 Allergy/AdvReac Type Severity Reaction Status Date / Time No Known Allergies Allergy Verified 06/14/18 19:42 Date of admission: 06/14/18 21:01 Primary care physician: Juan C Hawk DO Consults: 06/14/18 23:41 Consult to Brake Lining Driller [CONS] Routine Reason for SW Consult: Find out what novel anticoagulant her insurance covers (currently started on xarelto). Thanks. Discharging clinician: Dawood Landaverde Anticipated date of discharge: 06/15/18 - Constitutional Vitals: Temp Pulse Resp BP Pulse Ox 97.8 F 73 19 147/94 95 06/15/18 11:38 06/15/18 11:38 06/15/18 11:38 06/15/18 11:38 06/15/18 11:38 General appearance: Present: cooperative, A&O X 3, pleasant, no acute distress, obese, answers questions appropriately - Head Head exam: Present: atraumatic, normocephalic - Eye Eye exam: Present: PERRL, conjuntiva pink, sclera anicteric Pupils: Present: PERRL - Neck Neck exam general surgery: Present: supple, trachea midline. Absent: lymphadenopathy - Respiratory Respiratory exam: Present: CTAB. Absent: accessory muscle use, rales, rhonchi, wheezes - Cardiovascular Cardiovascular exam: Present: irregular rhythm, +S1, +S2. Absent: diastolic murmur, gallop, rubs, systolic murmur - GI/Abdominal GI/Abdominal exam: Present: normal bowel sounds, soft, no peritoneal signs. Absent: distended, tenderness - Extremities Exam Extremities exam: Present: warm, radial pulses palpable and symmetrical. Absent : calf tenderness, cyanotic, pedal edema - Neurological Exam Neurological exam: Present: CN II-XII intact, oriented X3, no focal deficits. Absent: pronater drift, facial droop, speech deficit - Skin Skin exam: Present: dry, intact - Patient Status Disposition: Home, Self-Care Condition: Good Functional capacity at discharge: independent ambulation Overall status at discharge: patient is back to baseline - Discharge Instructions Follow Up With: Juan C Hawk DO [Primary Care Provider] - 06/24/18 1:00 pm (Please follow up as schedule....) - Diet and Activity Activity: resume usual activities as tolerated Diet: low salt diet - VTE Documentation of Mechanical Device: Intermittent pneumatic compression device Contraindication No Overlap Therapy: Admin of oral Factor Xa Inhibitor
[2018-06-15 16:38] VITALS: BP 146/90
[2018-06-15] MEDS ORDERED: *HR* Rivaroxaban 10 MG TABLET PO SCH (17:00)
--- NOTE | 2018-06-16 20:41 | Electrocardiograph Report ---
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
== END 2018-06-15 18:45 | disposition home or self-care (01) ==
LOC: 2ANU 18:15 → EMEROO 18:15 → SUATTDRO 21:01 → 2ANU 22:31
PROVIDERS: ADMIT Family Medicine; ATTEND Internal Medicine

== ENCOUNTER 2018-08-16 23:18 | Observation (INO) ==
[2018-08-17] MEDS ORDERED: Naloxone 0.4 MG/ML INJ IVP PRN (02:38)
[2018-08-17 03:55] LABS: Basophils # 0.1 K/mcL (0.0-0.2); Basophils % 0.7 %; Eosinophils # 0.2 K/mcL (0.0-0.6); Eosinophils % 1.8 %; Hematocrit 36.9 % (35.3-44.9); Immature Granulocytes % 0.4 % (0-4); Lymphocytes # 2.6 K/mcL (0.6-4.6); Lymphocytes % 21.9 %; Mean Corpuscular HGB Conc 32.5 g/dL (31.6-35.5); Mean Corpuscular Hemoglobin 26.1 pg (28.0-33.3); Mean Corpuscular Volume 80.4 fL (83.0-100.0); Mean Platelet Volume 9.6 fL (9.4-12.4); Monocytes # 0.9 K/mcL (0.0-1.3); Monocytes % 7.9 %; Platelet Count 233 K/mcL (140-400); Red Blood Count 4.59 M/mcL (3.82-4.97); Red Cell Distribution Width 16.1 % (11.5-14.5); Segmented Neutrophils % 67.3 %
[2018-08-17 04:01] LABS: INR 1.9; Prothrombin Time 21.9 Seconds (9.4-12.1)
[2018-08-17 04:17] LABS: Alanine Aminotransferase 9 Units/L (7-52); Albumin 3.7 g/dL (3.5-5.7); Albumin/Globulin Ratio 1.3 (1.1-2.2); Alkaline Phosphatase 42 Units/L (34-104); Aspartate Amino Transferase 11 Units/L (13-39); BUN/Creatinine Ratio 28 (6-26); Bilirubin,Total 0.4 mg/dL (0.3-1.0); Blood Urea Nitrogen 17 mg/dL (8-23); Calcium 9.1 mg/dL (8.6-10.3); Carbon Dioxide 29 mEq/L (23-29); Chloride 100 mEq/L (98-107); Globulin 2.8 g/dL (2.4-3.5); Glucose 119 mg/dL (70-105); Magnesium 1.4 mg/dL (1.6-2.6); Osmolality,Calculated 287 (280-300); Potassium 3.1 mEq/L (3.5-5.1); Sodium 137 mEq/L (136-145); Total Protein 6.5 g/dL (6.4-8.9); eGFR For Non-African Americans > 60 (> 60)
--- NOTE | 2018-08-17 08:02 | Internal Med History&Physical ---
Date of Encounter: 08/17/18 Time of Encounter: 05:00 Internal Medicine - H&P: HPI Chief complaint: Near Syncope History of present illness: Ms. Rg is a 68 year old female with past medical history of GERD, diabetes, hyperlipidemia, hypertension and recently diagnosed atrial fibrillation currently on anticoagulation, who initially presented to [facility] due to near syncopal event. Patient states that she was at work around 4 PM and while standing she suddenly started feeling diaphoretic, nauseous and dizziness described as the room spinning. She subsequently sat down, had a soft drink at her symptoms improved. She attempted to get back to work and again shortly thereafter experienced similar symptoms. Patient denies any recent cough, fever , chills, diarrhea or dysuria. She states she has been eating and drinking normally. She does state that this has happened before at which time she did fall on pass out briefly. Past Med Surg Social Fam HX - Past Medical History Medical history: asthma, diabetes, GERD, hyperlipidemia, hypertension Additional medical history: Anemia. Polyneuropathy. Idiopathic peripheral neuropathy. Cervical Radiculapathy Psychiatric history: depression - Past Surgical History Surgical History: cholecystectomy, hysterectomy, orthopedic, other Additional surgical history: knee replacement,tonsillectomy - Social History Smoking Status: Never smoker Smokeless Tobacco Status: No Alcohol use: none Drug use: none - Family History Father Adopted: [place]: ART Family Member Ethnicity: Non- Living Status: Age at : 62 Cause of : [place] Hx Family Cardiac Disorders: Yes ([place]) Hx Family Respiratory Disorders: No Hx Family Cancer: No Hx Family GI Disorders: No Hx Family Genitourinary Disorders: No Hx Family Endocrine Disorder: No Hx Family Musculoskeletal Disorders: No Hx Family Neuromuscular Disorders: No Hx Family Neurologic Disorders: No Hx Family HEENT Disorders: No Hx Family Autoimmune Disorders: No Hx Family Reproductive Disorders: No Hx Family Psychosocial Disorders: No Hx Family Medical Disorders: No Internal Medicine - H&P: Meds Citalopram Hydrobromide [Citalopram HBr] 40 mg PO DAILY 03/24/17 [History] Rosuvastatin [Crestor] 20 mg PO HS 03/24/17 [History] Triamterene/Hydrochlorothiazid [Dyazide 37.5-25 Capsule] 1 cap PO DAILY [History] Iron Polysaccharide Complex [Pro Fe] 180 mg PO DAILY 06/14/18 [History] Lisinopril [Zestril] 10 mg PO DAILY 06/14/18 [History] Metformin HCl [Metformin HCl] 1,000 mg PO BID 06/14/18 [History] Metoprolol [Lopressor] 25 mg PO BID 06/14/18 [History] Omeprazole [PriLOSEC] 20 mg PO BID 06/14/18 [History] Warfarin [Coumadin] 4 mg PO 1800 #8 tablet 06/15/18 [Rx] 3 Allergy/AdvReac Type Severity Reaction Status Date / Time No Known Allergies Allergy Verified 06/14/18 19:42 All Systems PM: A 10-system review of systems was performed and is negative for pertinent findings except as documented above in the HPI. - Constitutional Constitutional: no chills, no fever(s), no night sweats - EENT Eyes: no change in vision, no discharge, no pain, no photophobia Ears: no ear discharge, no ear pain, no tinnitus Nose, mouth and throat: no dysphagia, no nasal discharge, no neck pain, no sore throat - Cardiovascular Cardiovascular ROS IM: no chest pain, no diaphoresis, no dyspnea, no lightheadedness, no palpitations, no syncope - Respiratory Respiratory: no cough, no dyspnea, no wheezing, no excessive phlegm production - Gastrointestinal Gastrointestinal: no abdominal pain, no diarrhea, no hematemesis, no hematochezia, no melena, no nausea, no vomiting - Genitourinary Genitourinary: no change in urinary stream, no dysuria, no flank pain, no hematuria - Musculoskeletal Musculoskeletal ROS IM: no numbness, no tingling - Integumentary Integumentary IM: no rash, no unusual bruising - Neurological Neurological ROS: no confusion, no convulsions, no focal weakness, no numbness, no tingling, no tremor(s) - Hematologic/Lymphatic Hematologic/Lymphatic: no easy bruising - Constitutional Vitals: Temp Pulse Resp BP Pulse Ox 97.9 F 97 15 160/93 94 08/17/18 07:13 08/17/18 07:13 08/17/18 07:13 08/17/18 07:13 08/17/18 07:13 Exam: General: Alert and oriented 3; lying in bed in no acute distress Skin:Normal color, no rash, no lesions. HEENT:EOM, pupils equal, round and reactive. Cardiovascular:Normal S1 & S2, no rubs, murmurs or gallops. No JVD. Pulse regular. Lungs:Normal breath sounds, no wheezes or crackles. Abdomen:Soft, non-tender, no rigidity. Extremities:No deformity, no edema or tenderness, no joint swelling or clubbing. Neurological:Normal cognition and motor skills. Pulses:Carotid and radial pulses normal +2. Rest of the physical exam is non contributory Internal Med - H&P Results - Labs CBC & Chem 7: 08/17/18 03:40 08/17/18 03:40 Labs: Short CBC 08/17/18 Range/Units 03:40 WBC 11.9 H (4.3-11.1) K/mcL Hgb 12.0 (11.5-15.4) g/dL Hct 36.9 (35.3-44.9) % Plt Count 233 (140-400) K/mcL Neutrophils # 8.0 (1.6-8.9) K/mcL BMP 08/17/18 03:40 Sodium 137 Potassium 3.1 L Chloride 100 Carbon Dioxide 29 BUN 17 Creatinine 0.60 Glucose 119 H Calcium 9.1 Liver Function 08/17/18 Range/Units 03:40 Total Bilirubin 0.4 (0.3-1.0) mg/dL AST 11 L (13-39) Units/L ALT 9 (7-52) Units/L Alkaline Phosphatase 42 (34-104) Units/L Albumin 3.7 (3.5-5.7) g/dL - Assessment and plan (1) Atrial fibrillation Current Visit: No Status: Acute Assessment and plan: Recent history of new onset atrial fibrillation rate controlled currently on anticoagulation who presents with near syncopal event. Found to have a heart rate in the 130s when she initially presented to [facility]. She would receive an additional 12.5 g of Lopressor and fluids. Repeat EKG shows atrial fibrillation with a rate of 96. Patient was placed on telemetry and heart rate consistently below 100. Currently asymptomatic. Patient has a mildly elevated white blood cell count however we have no evidence of an infection source nor a history to suggest a source of illness. At this time rate is controlled on telemetry. Would consider increasing dose of Lopressor. Qualifiers: Atrial fibrillation type: unspecified Qualified Code(s): I48.91 - Unspecified atrial fibrillation (2) Leukocytosis Current Visit: Yes Status: Acute Assessment and plan: Elevated white blood cell count of 11.9. No clear source of infection at this time nor does patient endorse any symptoms to suggest an illness. May be due to stress in the setting of near syncope. We will monitor for now. Qualifiers: Leukocytosis type: unspecified Qualified Code(s): D72.829 - Elevated white blood cell count, unspecified (3) Diabetes mellitus type II, controlled, with no complications Current Visit: No Status: Chronic Assessment and plan: Continue blood glucose checks. Sliding scale insulin. Qualifiers: Diabetes mellitus creative producer insulin use: without creative producer use Qualified Code(s): E11.9 - Type 2 diabetes mellitus without complications (4) HLD (hyperlipidemia) Current Visit: No Status: Chronic Assessment and plan: Continue home statin. Qualifiers: Hyperlipidemia type: mixed hyperlipidemia Qualified Code(s): E78.2 - Mixed hyperlipidemia (5) Hypertension Current Visit: No Status: Chronic Assessment and plan: Continue home antihypertensives. Blood pressure stable. Qualifiers: Hypertension type: essential hypertension Qualified Code(s): I10 - Essential (primary) hypertension (6) DVT prophylaxis Current Visit: No Status: Acute Assessment and plan: On warfarin. Check INR. - Time Spent With Patient Total time spent is greater than 50% in coordination of care (as documented) at patient's floor/unit and/or counseling patient:
[2018-08-17] MEDS ORDERED: D5% in Water 1,000 ML IVC PRN (08:08)
[2018-08-17] MEDS ORDERED: Dextrose Gel 15 GM/37.5 ML TUBE PO PRN ×2 (08:08)
[2018-08-17] MEDS ORDERED: *HR* Dextrose 50 % in Water (Syg) 50 ML SYRINGE IVP PRN (08:08)
[2018-08-17] MEDS: Insulin LISPRO 300 UNITS/3 ML VIAL SQ SCH ×3 (09:18→16:50)
[2018-08-17] MEDS: Potassium Chloride Elixir 20 MEQ/15 ML UDC PO SCH (09:41)
[2018-08-17] MEDS: (Iron Polysaccharide Complex [Pro Fe] 180 MG) PO SCH (09:41)
[2018-08-17] MEDS: *HR* Warfarin 4 MG TABLET PO SCH (16:50)
[2018-08-18] MEDS: Potassium Chloride Elixir 20 MEQ/15 ML UDC PO SCH (08:20)
[2018-08-18] MEDS: (Iron Polysaccharide Complex [Pro Fe] 180 MG) PO SCH (08:21)
[2018-08-18] MEDS: Insulin LISPRO 300 UNITS/3 ML VIAL SQ SCH ×3 (08:21→16:46)
[2018-08-18 09:34] LABS: Basophils # 0.1 K/mcL (0.0-0.2); Basophils % 0.8 %; Eosinophils # 0.5 K/mcL (0.0-0.6); Eosinophils % 4.6 %; Hematocrit 38.2 % (35.3-44.9); Hemoglobin 12.6 g/dL (11.5-15.4); Immature Granulocytes % 0.3 % (0-4); Lymphocytes # 2.4 K/mcL (0.6-4.6); Lymphocytes % 21.7 %; Mean Corpuscular Hemoglobin 26.3 pg (28.0-33.3); Mean Corpuscular Volume 79.7 fL (83.0-100.0); Monocytes # 0.7 K/mcL (0.0-1.3); Neutrophils # 7.3 K/mcL (1.6-8.9); Platelet Count 261 K/mcL (140-400); Red Blood Count 4.79 M/mcL (3.82-4.97); Red Cell Distribution Width 16.6 % (11.5-14.5); Segmented Neutrophils % 66.6 %
[2018-08-18 09:51] LABS: BUN/Creatinine Ratio 24 (6-26); Blood Urea Nitrogen 16 mg/dL (8-23); Calcium 9.2 mg/dL (8.6-10.3); Carbon Dioxide 27 mEq/L (23-29); Chloride 99 mEq/L (98-107); Glucose 214 mg/dL (70-105); Osmolality,Calculated 288 (280-300); Potassium 3.8 mEq/L (3.5-5.1); Sodium 135 mEq/L (136-145); eGFR For Non-African Americans > 60 (> 60)
--- NOTE | 2018-08-18 11:54 | Internal Med Progress Note ---
Hospitalist Progress Note - Encounter Date of Encounter: 08/18/18 Time of Encounter: 11:50 - Subjective Interval History: Patient seen and examined in the room, she denies vertigo overnight. She has no headache, numbness, or weakness. No fever, chills, or night sweats. No hearing or loss or tinnitus. - Exam Vitals: Temp Pulse Resp BP Pulse Ox 97.6 F 80 14 163/91 97 08/18/18 03:10 08/18/18 07:03 08/18/18 07:03 08/18/18 07:03 08/18/18 07:03 Exam: General: Alert and oriented 3; lying in bed in no acute distress Skin:Normal color, no rash, no lesions. HEENT:EOM, pupils equal, round and reactive. Cardiovascular:Normal S1 & S2, no rubs, murmurs or gallops. No JVD. Pulse regular. Lungs:Normal breath sounds, no wheezes or crackles. Abdomen:Soft, non-tender, no rigidity. Extremities:No deformity, no edema or tenderness, no joint swelling or clubbing. Neurological:Normal cognition and motor skills. Pulses:Carotid and radial pulses normal +2. Rest of the physical exam is non contributory - Assessment and Plan (1) Vertigo Current Visit: Yes Status: Acute Assessment and Plan: 68-year-old female with history of diabetes, hypertension, hyperlipidemia, and atrial fibrillation presented with one episode of vertigo. She reported several similar episodes with less severity in the past. She described the event as a spinning sensation rather than lightheadedness/fainting. - Based on the description by the patient, since it is vertigo rather than syncope. Differential diagnosis will be peripheral versus central syncope. - It usually lasts minutes per pt. But his time it lasted several hours. Pt has no recent infection or URI. No hearing loss or tinnitus. - MR brain to r/o stroke - [place]- Hallpike roughly negative. consider vestibular/labyrinth disorders. (2) Atrial fibrillation Current Visit: Yes Status: Acute Assessment and Plan: Found to have a heart rate in the 130s when she initially presented to [facility]. received 12.5 g of Lopressor and fluids. Repeat EKG shows atrial fibrillation with a rate of 96. Patient was placed on telemetry and heart rate consistently below 100. Currently asymptomatic. Patient has a mildly elevated white blood cell count however we have no evidence of an infection source nor a history to suggest a source of illness. At this time rate is controlled on telemetry. Would consider increasing dose of Lopressor. ECHO 08/18/2018 revealed normal EF , normal LV function, no PFO. (3) Hypertension Current Visit: No Status: Chronic Assessment and Plan: Continue home antihypertensives. Blood pressure stable. (4) HLD (hyperlipidemia) Current Visit: No Status: Chronic Assessment and Plan: Continue home statin. (5) Diabetes mellitus type II, controlled, with no complications Current Visit: No Status: Chronic Assessment and Plan: Continue blood glucose checks. Sliding scale insulin. (6) DVT prophylaxis Current Visit: No Status: Acute Assessment and Plan: On warfarin. Check INR. (7) Leukocytosis Current Visit: Yes Status: Resolved - Time Spent with Patient Total time spent is greater than 50% in coordination of care (as documented) at patient's floor/unit and/or counseling patient: Greater than 35 minutes Plan of Care Discussed with: patient Internal Medicine: Result - Labs CBC & Chem 7: 08/18/18 09:06 08/18/18 09:06 Labs: Short CBC 08/18/18 Range/Units 09:06 WBC 11.0 (4.3-11.1) K/mcL Hgb 12.6 (11.5-15.4) g/dL Hct 38.2 (35.3-44.9) % Plt Count 261 (140-400) K/mcL Neutrophils # 7.3 (1.6-8.9) K/mcL BMP 08/18/18 09:06 Sodium 135 L Potassium 3.8 Chloride 99 Carbon Dioxide 27 BUN 16 Creatinine 0.67 Glucose 214 H Calcium 9.2 - ABG Interpretation ABG results: PT/INR, D-dimer PT 21.9 Seconds (9.4-12.1) H 08/17/18 03:40 - Impressions Impressions Echocardiogram 08/17/18 07:59 Impressions: LVEF 55-60%. Normal LV chamber size and function. Mild concentric left ventricular hypertrophy. Indeterminate diastolic function. Normal right ventricular structure and function. No evidence of a PFO with agitated saline contrast. No evidence of pulmonary hypertension. Left Ventricular Wall Motion: Rest Echo Findings All wall segments showed normal motion. Findings: Study Quality * Technically adequate exam. ECG Findings * Atrial fibrillation. Left Ventricle * LVEF 55-60%. * Normal LV chamber size and function. * Mild concentric left ventricular hypertrophy. * Indeterminate diastolic function. Right Ventricle * Normal right ventricular structure and function. Left Atrium * Moderately dilated left atrium. Right Atrium * Mildly dilated right atrium. Interatrial Septum * No evidence of a PFO with agitated saline contrast. Aortic Valve * Aortic valve not well visualized. * No aortic regurgitation. * No aortic stenosis. Mitral Valve * Normal mitral valve structure and function. * No mitral regurgitation. * No mitral stenosis. Tricuspid Valve * Normal tricuspid valve structure and function. * Trace tricuspid regurgitation. * No evidence of pulmonary hypertension. Pulmonic Valve * Pulmonic valve is not well visualized. * No pulmonic regurgitation. Aorta * Normally sized aortic root. Pericardium * The pericardium appears normal. IVC * Normal IVC dimensions and inspiratory collapse. Pulmonary Artery * Normal visualized portions of the main pulmonary artery. Consult Discharge Plan - Plan Referrals: Juan C Hawk DO [Primary Care Provider] - (Requested a follow up appointment in 7-10 days. ) (2) Atrial fibrillation Qualifiers: Atrial fibrillation type: unspecified Qualified Code(s): I48.91 - Unspecified atrial fibrillation (3) Hypertension Qualifiers: Hypertension type: essential hypertension Qualified Code(s): I10 - Essential (primary) hypertension (4) HLD (hyperlipidemia) Qualifiers: Hyperlipidemia type: mixed hyperlipidemia Qualified Code(s): E78.2 - Mixed hyperlipidemia (5) Diabetes mellitus type II, controlled, with no complications Qualifiers: Diabetes mellitus [facility] insulin use: without ad terminal makeup operator use Qualified Code (s): E11.9 - Type 2 diabetes mellitus without complications (7) Leukocytosis Qualifiers: Leukocytosis type: unspecified Qualified Code(s): D72.829 - Elevated white blood cell count, unspecified
[2018-08-18 15:38] LABS: INR 1.4; Prothrombin Time 15.7 Seconds (9.4-12.1)
[2018-08-18] MEDS ORDERED: *HR* Warfarin 2 MG TABLET PO ONE (17:00)
[2018-08-18] MEDS: *HR* Warfarin 4 MG TABLET PO SCH (17:23)
[2018-08-19 05:50] LABS: INR 1.3; Prothrombin Time 14.8 Seconds (9.4-12.1)
[2018-08-19 06:00] LABS: BUN/Creatinine Ratio 25 (6-26); Blood Urea Nitrogen 14 mg/dL (8-23); Carbon Dioxide 29 mEq/L (23-29); Chloride 99 mEq/L (98-107); Glucose 127 mg/dL (70-105); Osmolality,Calculated 286 (280-300); Potassium 3.4 mEq/L (3.5-5.1); Sodium 137 mEq/L (136-145); eGFR For Non-African Americans > 60 (> 60)
[2018-08-19 07:12] VITALS: BP 158/93
[2018-08-19] MEDS: Insulin LISPRO 300 UNITS/3 ML VIAL SQ SCH (07:41)
[2018-08-19] MEDS ORDERED: *HR* Warfarin 2 MG TABLET PO ONE (07:54)
[2018-08-19] MEDS: Potassium Chloride Elixir 20 MEQ/15 ML UDC PO SCH (08:13)
[2018-08-19] MEDS ORDERED: Iron Polysaccharide Complex 150 MG CAPSULE PO SCH (09:00)
--- NOTE | 2018-08-19 10:43 | ENT - Consult Note ---
Date of Encounter: 08/19/18 Time of Encounter: 10:38 Assessment and Plan (1) Dizziness Current Visit: Yes Status: Acute For Dizziness: -- The differential diagnosis for dizziness was discussed with the patient including: BPPV, Mnire's disease, vestibular neuronitis, viral labyrinthitis, vestibular migraine, and other common causes. I discussed with the patient that dizziness can be multifactorial. --For this case, I do believe that this can likely be multifactorial vs vestibuoar neuronitis based upon severity at onset followed by dysequilibrium. --Obtian VNG to evaluate for presence of a peripheral weakness. --I discussed with the patient that during the periods of severe spinning sensation, she can use meclizine. Discussed with patient that using meclizine on a daily basis can slow central compensation and therefore I would only like her to use the meclizine and does severe spinning episodes. --[place]-Hallpike performed by primary team was negative. --MRI reviewed, no evidence of retrocochlear lesion --If the VNG demonstrates a peripheral weakness, we will have the patient began vestibular therapy --Follow up after testing and office History of Present Illness Consult date: 08/18/18 Reason for ENT Consult: vertigo History of present illness: Mrs. Ladonna Rg is a 68-year-old female with multiple medical history including atrial fibrillation as well as hypertension who presents to the hospital with dizziness. ENT is being asked to consult for dizziness. The onset of the patient's dizziness was approximately 2 weeks ago and the patient describes the dizziness as a spinning sensation. The length of the spinning sensation while last hours and will subside when the patient goes to like [facility]. The patient has had approximately 3 episodes in the past 2 weeks and she does experience disequilibrium between each episodes. Initially when this began the patient had a fall. The patient denies any recent upper respiratory tract infection as well as spinning sensation while she rolls over in bed. She has no associated hearing loss, aural fullness, and tinnitus. She denies any Valsalva induced dizziness as well as a sensation of eyes moving or hearing heels strike the ground. She does not have any personal history of migraine headache and with the dizziness she does not experience migraine aura or associated photophobia or phonophobia. She is still driving. She is not on a vestibular suppressant currently. Past Med Surg Social Fam HX - Past Medical History Source: patient Medical history: asthma, diabetes, GERD, hyperlipidemia, hypertension Additional medical history: Anemia. Polyneuropathy. Idiopathic peripheral neuropathy. Cervical Radiculapathy Psychiatric history: depression - Past Surgical History Surgical History: cholecystectomy, hysterectomy, orthopedic, other Additional surgical history: knee replacement,tonsillectomy - Social History Smoking Status: Never smoker Smokeless Tobacco Status: No Alcohol use: none Drug use: none - Family History Father Adopted: [place]: ART Family Member Ethnicity: Non- Living Status: Age at : 62 Cause of : [place] Hx Family Cardiac Disorders: Yes ([place]) Hx Family Respiratory Disorders: No Hx Family Cancer: No Hx Family GI Disorders: No Hx Family Genitourinary Disorders: No Hx Family Endocrine Disorder: No Hx Family Musculoskeletal Disorders: No Hx Family Neuromuscular Disorders: No Hx Family Neurologic Disorders: No Hx Family HEENT Disorders: No Hx Family Autoimmune Disorders: No Hx Family Reproductive Disorders: No Hx Family Psychosocial Disorders: No Hx Family Medical Disorders: No Medications and Allergies Citalopram Hydrobromide [Citalopram HBr] 40 mg PO DAILY 03/24/17 [History] Rosuvastatin [Crestor] 20 mg PO HS 03/24/17 [History] Triamterene/Hydrochlorothiazid [Dyazide 37.5-25 Capsule] 1 cap PO DAILY [History] Iron Polysaccharide Complex [Pro Fe] 180 mg PO DAILY 06/14/18 [History] Lisinopril [Zestril] 10 mg PO DAILY 06/14/18 [History] Metformin HCl [Metformin HCl] 1,000 mg PO BID 06/14/18 [History] Metoprolol [Lopressor] 25 mg PO BID 06/14/18 [History] Omeprazole [PriLOSEC] 20 mg PO BID 06/14/18 [History] Warfarin [Coumadin] 4 mg PO 1800 #8 tablet 06/15/18 [Rx] Potassium Chloride 20 meq PO DAILY #30 tab.er.prt 08/19/18 [Rx] 3 Allergy/AdvReac Type Severity Reaction Status Date / Time No Known Allergies Allergy Verified 06/14/18 19:42 ENT - ROS - EENT Nose, mouth and throat: as per HPI - Cardiovascular Cardiovascular ROS IM: irregular heart rhythm - Respiratory dyspnea on exertion - Gastrointestinal Gastrointestinal: nausea, no vomiting - Musculoskeletal Musculoskeletal ROS: no muscle weakness - Neurological Neurological ROS: dizziness, vertigo - Allergic/Immunologic no tongue swelling, no throat swelling ENT Exam Initial Vital Signs Temp Pulse Resp BP Pulse Ox 97.7 F 97 16 153/95 96 08/17/18 01:17 08/17/18 01:17 08/17/18 01:17 08/17/18 01:17 08/17/18 01:17 Exam Initial Vital Signs Temp Pulse Resp BP Pulse Ox 97.7 F 97 16 153/95 96 08/17/18 01:17 08/17/18 01:17 08/17/18 01:17 08/17/18 01:17 08/17/18 01:17 - General physical appearance well developed, well nourished, no distress - Eyes PERRL, normal ocular movement - ENT normal pinna, normal nares, normal mucosa, no hearing loss, no congestion, atraumatic, normocephalic, CN 2-12 grossly intact - Neck no bruits, trachea midline, no lymphadectomy, no venous distension - Respiratory normal expansion, normal respiratory effort - Abdomen Abdomen: non tender - Integumentary no growths, no abnormal pigmentation - Neurologic normal coordination Results - Labs 08/18/18 09:06 08/19/18 04:47 Abnormal lab results MCV 79.7 fL (83.0-100.0) L 08/18/18 09:06 MCH 26.3 pg (28.0-33.3) L 08/18/18 09:06 RDW 16.6 % (11.5-14.5) H 08/18/18 09:06 PT 14.8 Seconds (9.4-12.1) H 08/19/18 04:47 Potassium 3.4 mEq/L (3.5-5.1) L 08/19/18 04:47 Creatinine 0.56 mg/dL (0.60-1.20) L 08/19/18 04:47 Glucose 127 mg/dL (70-105) H 08/19/18 04:47 POC Glucose 291 mg/dL (70-99) H 08/18/18 20:22 Magnesium 1.4 mg/dL (1.6-2.6) L 08/17/18 03:40 AST 11 Units/L (13-39) L 08/17/18 03:40 Diabetes panel 08/19/18 Range/Units 04:47 Sodium 137 (136-145) mEq/L Potassium 3.4 L (3.5-5.1) mEq/L Chloride 99 (98-107) mEq/L Carbon Dioxide 29 (23-29) mEq/L BUN 14 (8-23) mg/dL Creatinine 0.56 L (0.60-1.20) mg/dL Glucose 127 H (70-105) mg/dL Calcium 9.0 (8.6-10.3) mg/dL Calcium panel 08/19/18 Range/Units 04:47 Calcium 9.0 (8.6-10.3) mg/dL Pituitary panel 08/19/18 Range/Units 04:47 Sodium 137 (136-145) mEq/L Potassium 3.4 L (3.5-5.1) mEq/L Chloride 99 (98-107) mEq/L Carbon Dioxide 29 (23-29) mEq/L BUN 14 (8-23) mg/dL Creatinine 0.56 L (0.60-1.20) mg/dL Glucose 127 H (70-105) mg/dL Calcium 9.0 (8.6-10.3) mg/dL Adrenal panel 08/19/18 Range/Units 04:47 Sodium 137 (136-145) mEq/L Potassium 3.4 L (3.5-5.1) mEq/L Chloride 99 (98-107) mEq/L Carbon Dioxide 29 (23-29) mEq/L BUN 14 (8-23) mg/dL Creatinine 0.56 L (0.60-1.20) mg/dL Glucose 127 H (70-105) mg/dL Calcium 9.0 (8.6-10.3) mg/dL All other labs normal. Consult Discharge Plan - Plan Instructions: Vertigo (DC), Syncope (DC) Additional Instructions: Don't forget your flu shot! Your prescription was called into [facility] Follow-up appointments: If there is not an appointment listed below, please call your physician and schedule a follow-up appointment. If you have congestive heart failure and your symptoms return, make an appointment with your physician. Medication List: Carry an up to date list of medications you are taking at all time. We have given you an updated medication list including any new medications that you have been prescribed. Please provide that list to your primary provider Symptoms: If your condition changes or you experience any of the following symptoms, notify your physician immediately: Unusual or worsening pain, fever, persistent nausea and vomiting, bleeding, increase in swelling (especially in your legs), sudden weight gain, extreme dizziness, chest pain, increased drainage or redness from a wound or incision. Go to the emergency department if you experience a problem with breathing. Weights: If you have a history of swelling or shortness of breath, weigh yourself daily and notify your physician if you have a weight gain of two or more pounds in one day or 5 or more pounds in a week. If you experience any of the warning signs for stroke: Sudden numbness or weakness of the face, arm or leg; especially on one side of the body, sudden confusion, trouble speaking or understanding, sudden trouble seeing in one or both eyes, sudden trouble walking, dizziness, loss of balance or coordination, sudden sever headache with no cause; Call 911 or go to the emergency room. Stroke is a medical emergency. Some risk factors for stroke: Age, cigarette smoking, diabetes, excessive alcohol consumption, family history , high blood pressure, overweight, physical inactivity, prior stroke, heart attack, diagnosis of carotid artery stenosis or other artery disease. If you smoke, STOP: Smoking or tobacco use significantly increases your risk of heart and lung disease. Your chance of disease greatly increases if you continue to smoke. For more information, call the [place] tobacco quit line for smoking cessation -NOW ( ) Referrals: Juan C Hawk DO [Primary Care Provider] - (Requested a follow up appointment in 7-10 days. If you do not hear anything with in 2-3 working days give the office a call. Thank you. ) Prescriptions: Potassium Chloride 20 meq PO DAILY #30 [email or web address].prt
--- NOTE | 2018-08-19 11:31 | Discharge Summary ---
- NOTES TO OUTPATIENT PROVIDER Notes to Outpatient Provider: f/u with PCP within a week,. f/u with ENT within a week. Orders not resulted at time of discharge: Pending orders 08/20/18 04:00 PT/INR [Prothrombin Time INR] [COAG] AM 0400 08/21/18 04:00 PT/INR [Prothrombin Time INR] [COAG] AM 0400 08/22/18 04:00 PT/INR [Prothrombin Time INR] [COAG] AM 0400 Date of Encounter: 08/19/18 Time of Encounter: 11:27 - Discharge Diagnosis (1) Vertigo Priority: Primary Status: Acute (2) Atrial fibrillation Priority: Secondary Status: Acute Qualifiers: Atrial fibrillation type: unspecified Qualified Code(s): I48.91 - Unspecified atrial fibrillation (3) Hypertension Priority: Secondary Status: Chronic Qualifiers: Hypertension type: essential hypertension Qualified Code(s): I10 - Essential (primary) hypertension (4) HLD (hyperlipidemia) Priority: Secondary Status: Chronic Qualifiers: Hyperlipidemia type: mixed hyperlipidemia Qualified Code(s): E78.2 - Mixed hyperlipidemia (5) Diabetes mellitus type II, controlled, with no complications Priority: Secondary Status: Chronic Qualifiers: Diabetes mellitus long term care pharmacist insulin use: without long term care pharmacist use Qualified Code(s): E11.9 - Type 2 diabetes mellitus without complications (6) DVT prophylaxis Priority: Primary Status: Acute (7) Leukocytosis Priority: Primary Status: Resolved Qualifiers: Leukocytosis type: unspecified Qualified Code(s): D72.829 - Elevated white blood cell count, unspecified Hospital course: Ms. Rg is a 68 year old female with past medical history of GERD, diabetes, hyperlipidemia, hypertension and recently diagnosed atrial fibrillation currently on anticoagulation, who initially presented to [facility] due to near syncopal event. Patient states that she was at work around 4 PM and while standing she suddenly started feeling diaphoretic, nauseous and dizziness described as the room spinning. She subsequently sat down, had a soft drink at her symptoms improved. She attempted to get back to work and again shortly thereafter experienced similar symptoms. Patient denies any recent cough, fever , chills, diarrhea or dysuria. She states she has been eating and drinking normally. She does state that this has happened before at which time she did fall on pass out briefly. On arrival, she was found in atrial fibrillation with HR about 120, her heart rate has decreased down to 80-90 after taking home meds. Brain MRI was performed, which revealed no acute abnormalities. Patient also had echocardiogram which showed normal ejection fraction, mild left ventricular hypertrophy, indeterminate diastolic function, normal RV function. Carotid Doppler showed nonobstructive plaques. She will labs showed hypokalemia and hypomagnemia, which was corrected by supplement. ENT was consulted, recommended outpatient follow-up. She will be discharged home today. ENT office will call the patient for appointment. Patient was instructed to follow-up with PCP within a week. Discharge discussed with: patient Time spent discussing smoking cessation with patient: more than 10 minutes - Time Spent with Patient Total time spent providing and/or coordinating discharge services: Greater than 30 minutes - Discharge Medications Prescriptions: Potassium Chloride 20 meq PO DAILY #30 tab.er.prt Home Medications: Citalopram Hydrobromide [Citalopram HBr] 40 mg PO DAILY 03/24/17 [History] Rosuvastatin [Crestor] 20 mg PO HS 03/24/17 [History] Triamterene/Hydrochlorothiazid [Dyazide 37.5-25 Capsule] 1 cap PO DAILY [History] Iron Polysaccharide Complex [Pro Fe] 180 mg PO DAILY 06/14/18 [History] Lisinopril [Zestril] 10 mg PO DAILY 06/14/18 [History] Metformin HCl 1,000 mg PO BID 06/14/18 [History] Metoprolol [Lopressor] 25 mg PO BID 06/14/18 [History] Omeprazole [PriLOSEC] 20 mg PO BID 06/14/18 [History] Warfarin [Coumadin] 4 mg PO 1800 #8 tablet 06/15/18 [Rx] Potassium Chloride 20 meq PO DAILY #30 tab.er.prt 08/19/18 [Rx] Allergies/Adverse Reactions: 3 Allergy/AdvReac Type Severity Reaction Status Date / Time No Known Allergies Allergy Verified 06/14/18 19:42 Date of admission: 08/17/18 00:55 Primary care physician: Juan C Hawk DO Consults: 08/18/18 16:46 Consult to ENT [CONS] Routine Consulting Provider: NAIF Adrian Reason for Consult: vertigo Call Completed: Yes Anticipated date of discharge: 08/19/18 - Constitutional Vitals: Temp Pulse Resp BP Pulse Ox 97.7 F 61 16 158/93 98 08/19/18 07:11 08/19/18 07:11 08/19/18 07:11 08/19/18 07:11 08/19/18 07:11 General appearance: Present: cooperative, A&O X 3, answers questions appropriately Exam: PHYSICAL EXAMINATION: GENERAL APPEARANCE: The patient is alert, oriented and in no acute distress. HEENT: Head is normocephalic. The sinuses are nontender. Pupils are equal and reactive. The nares are patent. Oropharynx clear without lesions. NECK: Supple without lymphadenopathy. HEART: Regular rate and rhythm. LUNGS: No crackles or wheezes are heard. ABDOMEN: Soft, nontender, nondistended with good bowel sounds heard. Inguinal area is normal. EXTREMITIES: Without cyanosis, clubbing or edema. NEUROLOGICAL: Gross nonfocal. SKIN: Warm and dry without any rash. - Patient Status Disposition: Home, Self-Care Condition: Fair Functional capacity at discharge: independent ambulation Overall status at discharge: patient is back to baseline - Discharge Instructions Instructions: Vertigo (DC), Syncope (DC) Follow Up With: Juan C Hawk DO [Primary Care Provider] - (Requested a follow up appointment in 7-10 days. If you do not hear anything with in 2-3 working days give the office a call. Thank you. ) Additional Instructions: Don't forget your flu shot! Your prescription [facility] Follow-up appointments: If there is not an appointment listed below, please call your physician and schedule a follow-up appointment. If you have congestive heart failure and your symptoms return, make an appointment with your physician. Medication List: Carry an up to date list of medications you are taking at all time. We have given you an updated medication list including any new medications that you have been prescribed. Please provide that list to your primary provider Symptoms: If your condition changes or you experience any of the following symptoms, notify your physician immediately: Unusual or worsening pain, fever, persistent nausea and vomiting, bleeding, increase in swelling (especially in your legs), sudden weight gain, extreme dizziness, chest pain, increased drainage or redness from a wound or incision. Go to the emergency department if you experience a problem with breathing. Weights: If you have a history of swelling or shortness of breath, weigh yourself daily and notify your physician if you have a weight gain of two or more pounds in one day or 5 or more pounds in a week. If you experience any of the warning signs for stroke: Sudden numbness or weakness of the face, arm or leg; especially on one side of the body, sudden confusion, trouble speaking or understanding, sudden trouble seeing in one or both eyes, sudden trouble walking, dizziness, loss of balance or coordination, sudden sever headache with no cause; Call 911 or go to the emergency room. Stroke is a medical emergency. Some risk factors for stroke: Age, cigarette smoking, diabetes, excessive alcohol consumption, family history , high blood pressure, overweight, physical inactivity, prior stroke, heart attack, diagnosis of carotid artery stenosis or other artery disease. If you smoke, STOP: Smoking or tobacco use significantly increases your risk of heart and lung disease. Your chance of disease greatly increases if you continue to smoke. For more information, call the [place] tobacco quit line for smoking cessation QUIT-NOW ( ) - Diet and Activity Activity: resume usual activities as tolerated Diet: diabetic diet
--- NOTE | 2018-08-19 11:36 | Electrocardiograph Report ---
[place] [id number] Test Date: 2018-08-17 Pat Name: Ladonna Rg Department: 113 Room: 3B23 Gender: F Route Agent: : [id number] Requested By: Gisella Lewis Order Number: [id number] Reading MD: Timo Mejia Measurements Intervals [place] Rate: 96 P: DC: 0 QRS: 26 QRSD: 97 T: 0 QT: 272 QTc: 325 Interpretive Statements ATRIAL FIBRILLATION NONSPECIFIC T-WAVE ABNORMALITY ABNORMAL RHYTHM ECG Electronically Signed On 08-19-2018 11:34:57 EDT by Timo Mejia
[2018-08-19] MEDS ORDERED: Warfarin perPT PO PRN (18:00)
[2018-08-19] MEDS ORDERED: *HR* Warfarin 3 MG TABLET PO ONE (18:00)
== END 2018-08-19 13:18 | disposition home or self-care (01) ==
LOC: 3BNU
PROVIDERS: ADMIT Internal Medicine; ATTEND Internal Medicine

== ENCOUNTER 2019-03-26 12:47 | Observation (INO) ==
[2019-03-26 13:27] LABS: Basophils # 0.1 K/mcL (0.0-0.2); Basophils % 0.5 %; Eosinophils # 0.2 K/mcL (0.0-0.6); Eosinophils % 2.5 %; Hematocrit 35.7 % (35.3-44.9); Immature Granulocytes % 0.3 % (0-4); Lymphocytes # 2.1 K/mcL (0.6-4.6); Lymphocytes % 22.7 %; Mean Corpuscular HGB Conc 33.6 g/dL (31.6-35.5); Mean Corpuscular Hemoglobin 28.9 pg (28.0-33.3); Mean Platelet Volume 10.1 fL (9.4-12.4); Monocytes # 0.8 K/mcL (0.0-1.3); Monocytes % 8.6 %; Platelet Count 238 K/mcL (140-400); Red Blood Count 4.15 M/mcL (3.82-4.97); Red Cell Distribution Width 12.7 % (11.5-14.5); Segmented Neutrophils % 65.4 %
[2019-03-26 13:49] LABS: BUN/Creatinine Ratio 17 (6-26); Blood Urea Nitrogen 12 mg/dL (8-23); Calcium 9.1 mg/dL (8.6-10.3); Carbon Dioxide 29 mEq/L (23-29); Chloride 101 mEq/L (98-107); Glucose 101 mg/dL (70-105); Magnesium 1.3 mg/dL (1.6-2.6); Osmolality,Calculated 286 (280-300); Potassium 3.7 mEq/L (3.5-5.1); Sodium 138 mEq/L (136-145); eGFR For Non-African Americans > 60 (> 60)
[2019-03-26 13:50] LABS: Troponin I < 0.03 ng/mL (< 0.04)
[2019-03-26 14:03] LABS: Thyroid Stimulating Hormone 3.246 mcIU/mL (0.340-5.600)
[2019-03-26 14:19] LABS: Prothrombin Time 45.7 Seconds (9.4-12.1)
[2019-03-26] MEDS ORDERED: Acetaminophen 325 MG TABLET PO ONE (14:38)
--- NOTE | 2019-03-26 15:10 | Emergency Department Note ---
Disposition Clinical Impression: Supratherapeutic INR, Dizziness CHF (congestive heart failure) Qualifiers: Heart failure type: unspecified Heart failure chronicity: acute Qualified Code(s): I50.9 - Heart failure, unspecified Afib Qualifiers: Atrial fibrillation type: chronic Qualified Code(s): I48.2 - Chronic atrial fibrillation Chest pain Qualifiers: Chest pain type: unspecified Qualified Code(s): R07.9 - Chest pain, unspecified Diabetes mellitus type II, controlled, with no complications Qualifiers: Diabetes mellitus mcfp insulin use: unspecified mcfp insulin use status Qualified Code(s): E11.9 - Type 2 diabetes mellitus without complications Hypertension Qualifiers: Hypertension type: essential hypertension Qualified Code(s): I10 - Essential (primary) hypertension HLD (hyperlipidemia) Qualifiers: Hyperlipidemia type: unspecified Qualified Code(s): E78.5 - Hyperlipidemia, unspecified Disposition: Admitted As Inpatient Condition: Fair Time of Disposition: 15:17 General Adult HPI - General Chief complaint: ED Dizziness Stated complaint: CP,dizziness Time Seen by Provider: 03/26/19 12:52 Source: patient Mode of arrival: ambulatory Limitations: no limitations Nursing Notes Reviewed: Yes Vital Signs Reviewed: Yes - History of Present Illness HPI Narrative: 68 yo female with past medical history of atrial fibrillation, diabetes and hypertension presents to the emergency department with chest pain and dizziness. Patient states that she got severely lightheaded and felt as though she was going to pass out at approximately 5:00 this morning. She then noticed some chest pressure radiating into her left shoulder and back Proximally 7:00 this morning. She took her blood pressure before taking her blood pressure medications this morning and noticed it was high at 180/110. She then took her blood pressure medications and began feeling slightly better and on remeasu rement of her blood pressure it was 150/100. She was not feeling completely better and she therefore decided to come to the emergency room to seek medical help. She currently does not have any chest pain or chest pressure but states that she feels generally fatigued and unwell. She denies fevers, cough, sputum production, abdominal pain, nausea and vomiting, diaphoresis with this chest pain episode earlier. Pain Scale: 9 - Related Data Home Medications Medication Instructions Recorded Confirmed Citalopram Hydrobromide 40 mg PO DAILY 03/24/17 03/26/19 [Citalopram HBr] Rosuvastatin [Crestor] 20 mg PO HS 03/24/17 03/26/19 Triamterene/Hydrochlorothiazid 1 cap PO DAILY 03/24/17 03/26/19 [Dyazide 37.5-25 Capsule] Iron Polysaccharide Complex [Pro 180 mg PO DAILY 06/14/18 03/26/19 Fe] Lisinopril [Zestril] 10 mg PO DAILY 06/14/18 03/26/19 Metoprolol [Lopressor] 25 mg PO BID 06/14/18 03/26/19 Omeprazole [PriLOSEC] 20 mg PO BID 06/14/18 03/26/19 Warfarin [Coumadin] 4 mg PO SUTUWEFRSA 01/07/19 03/26/19 Metformin HCl 1,000 mg PO BID 03/26/19 03/26/19 Warfarin Sodium 6 mg PO MOTH 03/26/19 03/26/19 Allergies Allergy/AdvReac Type Severity Reaction Status Date / Time No Known Allergies Allergy Verified 03/26/19 15:33 All systems ED: reviewed and negative except as stated. Review of Systems: As Per HPI Constitutional: Reports: weakness. Denies: fever, chills Eyes: Reports: vision change (blurry vision) Cardiovascular: Reports: chest pain, dyspnea on exertion. Denies: palpitations, orthopnea, edema, syncope Respiratory: Reports: dyspnea. Denies: cough, wheezes, hemoptysis Gastrointestinal: Denies: abdominal pain, nausea, vomiting, diarrhea Genitourinary: Denies: dysuria, hematuria Musculoskeletal: Reports: back pain. Denies: neck pain Neurological: Reports: headache, weakness. Denies: numbness, paresthesias Endocrine: Reports: fatigue Past Medical History - Past Medical History Attestation: Yes The following information was validated with the patient. Source: patient Medical history: Reports: diabetes, GERD, hyperlipidemia, hypertension Surgical history: Reports: cholecystectomy, hysterectomy, orthopedic, other Psychiatric history: Reports: depression - Social History Smoking Status: Never smoker Smokeless Tobacco Status: No Alcohol use: Reports: none Drug use: Reports: none Physical Exam - General Limitations: no limitations General appearance: alert, in no apparent distress - Head Head exam: atraumatic, normocephalic - Eye Eye exam: Present: normal appearance, PERRL, EOMI - ENT ENT exam: normal exam, normal oropharynx - Neck Neck exam: Present: normal inspection. Absent: tenderness, lymphadenopathy - Chest Chest inspection: Present: normal inspection. Absent: tenderness, rash - Respiratory Respiratory exam: Present: normal lung sounds bilaterally. Absent: wheezes - Cardiovascular Cardiovascular exam: Present: regular rate, irregular rhythm, systolic murmur - Abdominal Exam Abdominal exam: Present: soft, Non-Tender. Absent: distention, guarding, rebound, rigidity - Extremities Exam Extremities exam: Present: normal inspection. Absent: tenderness, pedal edema - Neurological Exam Neurological exam: Present: alert, oriented X3, CN II-XII intact. Absent: motor sensory deficit - Psychiatric Psychiatric exam: Present: normal affect, normal mood - Skin Skin exam: Present: warm, dry, intact Course Vital Signs Temperature 97.6 F 03/26/19 12:52 Pulse Rate 99 03/26/19 12:52 Respiratory Rate 18 03/26/19 12:52 Blood Pressure 161/109 03/26/19 12:52 O2 Sat by Pulse Oximetry 99 03/26/19 12:52 Temperature 97.6 F 03/26/19 12:52 Pulse Rate 98 03/26/19 14:23 Respiratory Rate 24 03/26/19 14:23 Blood Pressure 155/107 03/26/19 14:23 O2 Sat by Pulse Oximetry 96 03/26/19 14:23 Oxygen Delivery Oxygen Delivery Room Air Medical Decision Making - [facility] Narrative Medical decision making narrative: Patient presents with chest pain and dizziness that have been somewhat relieved with decrease in blood pressure. She also had some blurred vision with this this is concerning for hypertensive emergency. Her blood pressure is now controlled and therefore we will not give any further medication for her blood pressure. We will obtain cardiac labs, EKG and chest x-ray and continue to observe the patient. 1500 - patient's labs are at her baseline with the exception of her INR being elevated at 4. She is not bleeding currently therefore we will not give her any vitamin K therapy or other reversal agents. Chest x-ray showed new onset pulmonary edema and cardiomegaly concerning for new CHF. The patient does still have some general malaise and chest pressure at this time and is agreeable with admission for her new-onset heart failure and continued cardiac workup. Hospitalist was paged and the patient was accepted to the hospital service by Dr. Hartman. - Medical Records Medical records reviewed: Yes I reviewed the patient's medical records. - Lab Data Lab results reviewed: Yes I reviewed the patient's lab results. Result diagrams: 03/26/19 12:10 03/26/19 12:10 Lab Results 03/26/19 03/26/19 03/26/19 Range/Units 12:10 12:10 12:10 WBC 9.2 (4.3-11.1) K/mcL RBC 4.15 (3.82-4.97) M/mcL Hgb 12.0 (11.5-15.4) g/dL Hct 35.7 (35.3-44.9) % MCV 86.0 (83.0-100.0) fL MCH 28.9 (28.0-33.3) pg MCHC 33.6 (31.6-35.5) g/dL RDW 12.7 (11.5-14.5) % Plt Count 238 (140-400) K/mcL MPV 10.1 (9.4-12.4) fL Immature Gran % 0.3 (0-4) % Seg Neutrophils % 65.4 % Lymphocytes % 22.7 % Monocytes % 8.6 % Eosinophils % 2.5 % Basophils % 0.5 % Neutrophils # 6.0 (1.6-8.9) K/mcL Lymphocytes # 2.1 (0.6-4.6) K/mcL Monocytes # 0.8 (0.0-1.3) K/mcL Eosinophils # 0.2 (0.0-0.6) K/mcL Basophils # 0.1 (0.0-0.2) K/mcL PT (9.4-12.1) Seconds INR Sodium 138 (136-145) mEq/L Potassium 3.7 (3.5-5.1) mEq/L Chloride 101 (98-107) mEq/L Carbon Dioxide 29 (23-29) mEq/L BUN 12 (8-23) mg/dL Creatinine 0.70 (0.60-1.20) mg/dL Est GFR ( Amer) > 60 (> 60) Est GFR (Non-Af Amer) > 60 (> 60) BUN/Creatinine Ratio 17 (6-26) Glucose 101 (70-105) mg/dL Calculated Osmolality 286 (280-300) Calcium 9.1 (8.6-10.3) mg/dL Magnesium 1.3 L (1.6-2.6) mg/dL Troponin I < 0.03 (< 0.04) ng/mL B-Natriuretic Peptide 240 H (Less than 100) pg/mL TSH 3.246 (0.340-5.600) mcIU/mL 03/26/19 Range/Units 13:54 WBC (4.3-11.1) K/mcL RBC (3.82-4.97) M/mcL Hgb (11.5-15.4) g/dL Hct (35.3-44.9) % MCV (83.0-100.0) fL MCH (28.0-33.3) pg MCHC (31.6-35.5) g/dL RDW (11.5-14.5) % Plt Count (140-400) K/mcL MPV (9.4-12.4) fL Immature Gran % (0-4) % Seg Neutrophils % % Lymphocytes % % Monocytes % % Eosinophils % % Basophils % % Neutrophils # (1.6-8.9) K/mcL Lymphocytes # (0.6-4.6) K/mcL Monocytes # (0.0-1.3) K/mcL Eosinophils # (0.0-0.6) K/mcL Basophils # (0.0-0.2) K/mcL PT 45.7 H* (9.4-12.1) Seconds INR 4.0 Sodium (136-145) mEq/L Potassium (3.5-5.1) mEq/L Chloride (98-107) mEq/L Carbon Dioxide (23-29) mEq/L BUN (8-23) mg/dL Creatinine (0.60-1.20) mg/dL Est GFR ( Amer) (> 60) Est GFR (Non-Af Amer) (> 60) BUN/Creatinine Ratio (6-26) Glucose (70-105) mg/dL Calculated Osmolality (280-300) Calcium (8.6-10.3) mg/dL Magnesium (1.6-2.6) mg/dL Troponin I (< 0.04) ng/mL B-Natriuretic Peptide (Less than 100) pg/mL TSH (0.340-5.600) mcIU/mL - Radiology Data Radiology results reviewed: Yes I reviewed the patient's radiology results. - EKG Data EKG #1 EKG attestation: Yes I reviewed and interpreted this EKG. EKG results narrative: EKG obtained at 12:55 on 03/26/2019 Heart rate 10 7 bpm, QRS duration 108, QT 379, QTC 506 Atrial fibrillation with low voltage in the precordial leads. Prolonged QT interval. No significant ST segment elevation or depression. Nonspecific T- wave abnormalities throughout most leads that is unchanged from her previous EKG dated 08/17/2019. Attestation Statement - Attestation Attestation: Resident Attestation: I examined this patient and my medical decision making was reviewed with the Resident Physician. I agree with the documented findings, disposition and treatment plan as described except to the extent set forth below. We independently had [id number] contact with the patient. Patient with history of A. fib on Coumadin presented for evaluation of chest pain. Chest pain is described as a pressure that started this morning while she was awake at 5 AM. Was associated with dizziness as well as blurred vision and feeling of possible near syncope. Patient with no previous episodes of this. Symptoms did keep her from going back to bed around 7:00. Patient had stress test approximately 1 year ago. Patient does have a strong family history of heart disease but herself has not had any stents or bypass in the past. Patient states overall symptoms improve while she is at rest. She does have some associated vertiginous symptoms as she is more dizzy if she moves her head. Patient will need further investigation of both chest pain as well as near syncope. Patient will be admitted for further management.
--- NOTE | 2019-03-26 16:47 | Internal Med History&Physical ---
Date of Encounter: 03/26/19 Time of Encounter: 16:44 Internal Medicine - H&P: HPI Chief complaint: dizziness Admitted From: Home Plans for Post Hospital Care: Home History of present illness: Ms. Rg is a 68 year old female with past medical history of GERD, diabetes, hypertension, hyperlipidemia, atrial fibrillation/flutter, neuropathy, cervical radiculopathy, depression came in with complain of dizziness. Patient had similar admission on August last year. Patient had an episode of dizziness while she was lying in bed associated with some blurry vision and the room spinning around. Denies any nausea or vomiting. She had associated chest pain before it that lasted for a few seconds which was chest pressure and characteristic nonradiating. She also associated both shoulder pain. Denies any difficulty breathing, fevers chills or abdominal pain. She has chronic back pain. She came to ER as the sensation of dizziness did not resolve. She noted her blood pressure to be elevated with systolic being 180 and diastolic in 100s. She did not have any weakness numbness tingling on any part of her body. Denies any falls. She did not recall any palpitations. Denies any blacking out or loss of consciousness. She mentioned she had a stress test about 1-2 years ago but not sure. She denies any upper respiratory symptoms, runny nose, ear discharge and eye discharge. Patient had workup done in the ER. EKG showed rate controlled rhythm with A. fib, INR of 4, mildly elevated BNP at 240 and slightly low magnesium. Patient's chest x-ray showed some congestion and admission was requested for cardiac workup. On review of previous charts patient had echocardiogram which showed diastolic dysfunction and EF of 55-60% on 09/02. Patient had brain MRI at the time which was essentially unremarkable. Patient had ENT evaluation who felt her symptoms could be multifactorial including vestibular neuronitis. She did not follow-up with ENT after that discharged. Patient does mention she had significant family history of cardiac disease. She denies any allergies. Denies any new medication or doew-enc-wutocer medication. Past Med Surg Social Fam HX - Past Medical History Medical history: diabetes, GERD, hyperlipidemia, hypertension Additional medical history: Anemia. Polyneuropathy. Idiopathic peripheral neuropathy. Cervical Radiculapathy Psychiatric history: depression - Past Surgical History Surgical History: cholecystectomy, hysterectomy, orthopedic, other Additional surgical history: knee replacement,tonsillectomy - Social History Smoking Status: Never smoker Smokeless Tobacco Status: No Alcohol use: none Drug use: none - Family History Father Adopted: No Family Member Ethnicity: Non- Living Status: Hx Family Cardiac Disorders: Yes (PA) Hx Family Respiratory Disorders: No Hx Family Cancer: No Hx Family GI Disorders: No Hx Family Endocrine Disorder: No Hx Family Neuromuscular Disorders: No Hx Family Neurologic Disorders: No Hx Family HEENT Disorders: No Hx Family Autoimmune Disorders: No - Additional Family History Additional family history: son had PA in 30s Internal Medicine - H&P: Meds Citalopram Hydrobromide [Citalopram HBr] 40 mg PO DAILY 03/24/17 [History] Rosuvastatin [Crestor] 20 mg PO HS 03/24/17 [History] Triamterene/Hydrochlorothiazid [Dyazide 37.5-25 Capsule] 1 cap PO DAILY 03/24/17 [History] Iron Polysaccharide Complex [Pro Fe] 180 mg PO DAILY 06/14/18 [History] Lisinopril [Zestril] 10 mg PO DAILY 06/14/18 [History] Metoprolol [Lopressor] 25 mg PO BID 06/14/18 [History] Omeprazole [PriLOSEC] 20 mg PO BID 06/14/18 [History] Warfarin [Coumadin] 4 mg PO SUTUWEFRSA 01/07/19 [History] Metformin HCl 1,000 mg PO BID 03/26/19 [History] Warfarin Sodium 6 mg PO MOTH 03/26/19 [History] Allergy/AdvReac Type Severity Reaction Status Date / Time No Known Allergies Allergy Verified 03/26/19 15:33 All Systems PM: A 10-system review of systems was performed and is negative for pertinent findings except as documented above in the HPI. - Constitutional Vitals: Temp Pulse Resp BP Pulse Ox 97.6 F 87 16 150/110 98 03/26/19 12:52 03/26/19 16:31 03/26/19 16:31 03/26/19 16:31 03/26/19 16:31 Exam: Constitutional: Vitals as noted. Conversant. No Apparent Distress. Well groomed. No obvious deformities. Eyes : Sclera white, conjunctiva clear, no lid lag, PEARLA. ENT : Grossly normal hearing. Oropharyngeal exam unremarkable. Moist mucus membranes. No JVD, no cervical lymphadenopathy. no thyromegaly or mass. Respiratory : No accessory muscle use. occasional crackles at base Cardiovascular : irregular HR, +S1, +S2. no murmur, gallop, rubs. No chest wall tenderness GI/Abdominal : Soft, Non-tender, Non-distended, normal bowel sounds, soft, no peritoneal signs. no orgenomegaly or mass appreciated. no hernia. Musculoskeletal: no deformity noted. trace edema or cyanosis. warm extremities, pulses palpable and symmetrical in UE/LE. no calf tenderness. Neurological: AO X3, CN II-XII grossly intact, grossly normal motor and sensory exam. Skin: No skin rash, lesions or ulcers noted. Pych: Good insight and judgement. Intact memory. AOx3. Internal Med - H&P Results - Labs CBC & Chem 7: 03/26/19 12:10 03/26/19 12:10 Labs: Short CBC 03/26/19 Range/Units 12:10 WBC 9.2 (4.3-11.1) K/mcL Hgb 12.0 (11.5-15.4) g/dL Hct 35.7 (35.3-44.9) % Plt Count 238 (140-400) K/mcL Neutrophils # 6.0 (1.6-8.9) K/mcL BMP 03/26/19 12:10 Sodium 138 Potassium 3.7 Chloride 101 Carbon Dioxide 29 BUN 12 Creatinine 0.70 Glucose 101 Calcium 9.1 Cardiac Enzymes 03/26/19 Range/Units 12:10 Troponin I < 0.03 (< 0.04) ng/mL - EKG Data -: EKG Interpreted by Myself - Impressions ITS Impressions Chest X-Ray 03/26/19 12:53 IMPRESSION: 1. No acute findings in the chest. 2. Pulmonary vascular congestion and mild cardiomegaly. D/ / Javon Mejia MD / Javon Mejia MD Interpreting Provider: Javon Mejia MD - Assessment and Plan (1) Chest pain Current Visit: Yes Status: Acute Assessment and plan: Chest pain atypical in nature We will trend troponin. If negative we will plan for stress test tomorrow in morning Nothing by mouth after midnight Qualifiers: Chest pain type: unspecified Qualified Code(s): R07.9 - Chest pain, unspecified (2) Atrial fibrillation Current Visit: Yes Status: Acute Assessment and plan: Appears to be a controlled with home medication We will continue home metoprolol Hold home Coumadin given supratherapeutic INR. Qualifiers: Atrial fibrillation type: chronic Qualified Code(s): I48.2 - Chronic atrial fibrillation (3) CHF (congestive heart failure) Current Visit: Yes Status: Acute Assessment and plan: Known history of diastolic heart failure. Echo reviewed from September 2018. Does not appear to be volume overloaded Continue home Dyazide Qualifiers: Heart failure type: diastolic Heart failure chronicity: acute Qualified Code(s): I50.31 - Acute diastolic (congestive) heart failure (4) Dizziness Current Visit: Yes Status: Acute Assessment and plan: Does not appear to be cardiac in nature Will consult neurology to evaluate need for further inpatient workup Had Neuro workup including, brain MRI, carotids, ECHO on last admission which was unbreakable. Hold further imaging for now. (5) Supratherapeutic INR Current Visit: Yes Status: Acute Assessment and plan: Hold home Coumadin for now. (6) Diabetes mellitus type II, controlled, with no complications Current Visit: Yes Status: Chronic Assessment and plan: Hold home metformin. Keep on insulin sliding scale and Accu-Cheks. Qualifiers: Diabetes mellitus salvage determiner insulin use: without half-way use Qualified Code(s): E11.9 - Type 2 diabetes mellitus without complications (7) HLD (hyperlipidemia) Current Visit: Yes Status: Chronic Assessment and plan: Continue home statin Qualifiers: Hyperlipidemia type: unspecified Qualified Code(s): E78.5 - Hyperlipidemia, unspecified (8) Hypertension Current Visit: Yes Status: Chronic Assessment and plan: Continue home lisinopril metoprolol and Dyazide When necessary hydralazine for high blood pressure Qualifiers: Hypertension type: essential hypertension Qualified Code(s): I10 - Essential (primary) hypertension (9) Depression Current Visit: No Status: Chronic Assessment and plan: Continue home citalopram Qualifiers: Depression Type: other depression Qualified Code(s): F32.89 - Other specified depressive episodes (10) GERD (gastroesophageal reflux disease) Current Visit: No Status: Chronic Assessment and plan: Continue home omeprazole Qualifiers: Esophagitis presence: without esophagitis Qualified Code(s): K21.9 - Gastro-esophageal reflux disease without esophagitis - Time Spent With Patient Total time spent is greater than 50% in coordination of care (as documented) at patient's floor/unit and/or counseling patient:
[2019-03-26] MEDS ORDERED: Dextrose Gel 15 GM/37.5 ML TUBE PO PRN ×2 (19:03)
[2019-03-26] MEDS ORDERED: D5% in Water 1,000 ML IVC PRN (19:03)
[2019-03-26] MEDS ORDERED: *HR* Dextrose 50 % in Water (Syg) 50 ML SYRINGE IVP PRN (19:03)
[2019-03-27 01:17] LABS: INR 3.8; Prothrombin Time 42.4 Seconds (9.4-12.1)
[2019-03-27] MEDS ORDERED: Regadenoson 0.4 MG/5 ML SYRINGE IVP ONE (07:07)
[2019-03-27] MEDS: Insulin LISPRO 300 UNITS/3 ML VIAL SQ SCH ×3 (08:41→17:02)
[2019-03-27] MEDS ORDERED: Iron Polysaccharide Complex 150 MG CAPSULE PO SCH (09:00)
--- NOTE | 2019-03-27 11:33 | Neurology - Consult Note ---
Date of Encounter: 03/27/19 Time of Encounter: 11:32 Assessment and Plan (1) TIA (transient ischemic attack) Current Visit: Yes Status: Acute Patient with three recurrent episodes of vertigo lasting about a little less than half day with total resolution, associated with transient chest tightness and elevated HTN. Could be result of hypertensive urgency, currently with nonfocal neurological examination. Has had similar episodes before with vertigo as a main complaint lasting at least few hours in duration no significant otological complaints and no significant nausea. Different diagnosis mainly, first posterior circulation TIA or vestibular dysf unction Will recommend CTA of neck and head to check vertebrobasilar system. She is already on Coumadin for atrial fibrillation therefore no additional treatment will be needed. Recommend her to see an ENT for possible vestibular dysfunction, as BPPV and Meniere syndrome may be in the differentials. This can certainly be done as an outpatient. After CTA of head and neck is completed the patient can be discharged home. 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 All questions answered. (2) Vertigo Current Visit: No Status: Acute History of Present Illness Chief complaint: Dizziness, vertigo and chest tightness HPI: Ms. Rg is a 68 year old female with past medical history significant for hyperlipidemia, chronic atrial fibrillation on Coumadin, hypertension, diabetes, obstructive sleep apnea chronic lower back pain who presented to the emergency room with acute onset of dizziness and chest tightness. 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 Yesterday morning at about 5 AM while she was awake she suddenly developed dizziness described as room spinning sensation but she denied any tinnitus, nausea however, she has to keep still to minimize the dizziness. At about 7 AM in the morning, while she was sitting at edge of the bed she developed chest tightness that lasted for some minutes therefore she was concerned and called the squad. The chest tightness subsequently resolved but the dizziness lasted until 2 PM yesterday. She reports no tinnitus but some baseline hearing difficulty, no nausea or vomiting, no double vision and no speech difficulty. No mental status changes. Patient mentions that she has had 3 exactly similar episodes of dizziness within the last 7-8 months. Only difference is that this time she developed chest tightness and was found to have elevated blood pressure. First episode occurred during August 2018 and the patient was admitted here at [facility] and she had MRI of the brain which demonstrated no acute intracranial abnormality. She also had carotid artery duplex study which showed no critical ICA stenosis. The episodes all lasted a few hours in duration with a total resolution. Between episodes she denies any significant neurological discomforts. She did mention that few months ago she had a few falling episodes ended with some minor injuries. She states that when she falls she just fall her legs gave out. However, she states that she no longer falls in the last few months. She denies any bowel and bladder difficulty. Patient currently denies any significant discomforts. Patient did not have CT of the head in the emergency room. Past Med Surg Social Fam HX - Past Medical History Medical history: diabetes, GERD, hyperlipidemia, hypertension Additional medical history: Anemia. Polyneuropathy. Idiopathic peripheral neuropathy. Cervical Radiculapathy Psychiatric history: depression - Past Surgical History Surgical History: cholecystectomy, hysterectomy, orthopedic, other Additional surgical history: knee replacement,tonsillectomy - Social History Smoking Status: Never smoker Smokeless Tobacco Status: No Alcohol use: none Drug use: none - Family History Father Adopted: No Family Member Ethnicity: Non- Living Status: Hx Family Cardiac Disorders: Yes ([place]) Hx Family Respiratory Disorders: No Hx Family Cancer: No Hx Family GI Disorders: No Hx Family Endocrine Disorder: No Hx Family Neuromuscular Disorders: No Hx Family Neurologic Disorders: No Hx Family HEENT Disorders: No Hx Family Autoimmune Disorders: No Medications and Allergies Citalopram Hydrobromide [Citalopram HBr] 40 mg PO DAILY 03/24/17 [History] Rosuvastatin [Crestor] 20 mg PO HS 03/24/17 [History] Triamterene/Hydrochlorothiazid [Dyazide 37.5-25 Capsule] 1 cap PO DAILY 03/24/17 [History] Iron Polysaccharide Complex [Pro Fe] 180 mg PO DAILY 06/14/18 [History] Lisinopril [Zestril] 10 mg PO DAILY 06/14/18 [History] Metoprolol [Lopressor] 25 mg PO BID 06/14/18 [History] Omeprazole [PriLOSEC] 20 mg PO BID 06/14/18 [History] Warfarin [Coumadin] 4 mg PO SUTUWEFRSA 01/07/19 [History] Metformin HCl 1,000 mg PO BID 03/26/19 [History] Warfarin Sodium 6 mg PO MOTH 03/26/19 [History] 3 Allergy/AdvReac Type Severity Reaction Status Date / Time No Known Allergies Allergy Verified 03/26/19 15:33 All Systems: The remainder of the systems were reviewed and are negative - Constitutional Constitutional ROS IM: chills (no), fever(s) (no), frequent falls (yes) - Nose, Mouth, Throat Nose, mouth and throat: disequilibrium (yes), dizziness (yes) - Cardiovascular Cardiovascular ROS IM: chest pain (ys), chest pain at rest (ys), claudication (no), diaphoresis (no), dyspnea (no) - Respiratory Respiratory IM: cough (no) - Gastrointestinal Gastrointestinal: abdominal pain (no) - Genitourinary Genitourinary ROS: difficulty urinating (no), difficulty voiding (no) - Musculoskeletal Musculoskeletal ROS IM: abnormal gait (no), muscle weakness (no) - Neurological Neurological ROS: dizziness (yes), focal weakness (no), frequent falls (yes), loss of vision (no), paresthesias (no) - Psychiatric Psychiatric general PM: abnormal sleep pattern (yes), anxiety (no), auditory hallucinations (no), behavioral changes (no) Physical Examination - Vital Signs Vital Signs: Initial Vital Signs Temp Pulse Resp BP Pulse Ox 97.6 F 99 18 161/109 99 03/26/19 12:52 03/26/19 12:52 03/26/19 12:52 03/26/19 12:52 03/26/19 12:52 - Constitutional General appearance: comfortable - Neurologic Detailed motor examination: full strength in all major muscle groups Motor examination - right side: 5/5: deltoids, biceps, triceps, wrist flexion, wrist extension, home attendant, hip flexors, tibialis Anterior, quadriceps, toe extension (EHL), plantarflexion Motor examination - left side: 5/5: deltoids, biceps, triceps, wrist flexion, wrist extension, hip flexors, home attendant, quadriceps, tibialis Anterior, toe extension (EHL), plantarflexion Detailed sensory examination: intact Reflex and gait examination: intact Reflexes: Biceps: 2+, Triceps: 2+, Brachioradialis: 2+, Patella: 2+, Achilles: 2+ Mental Status Examination: awake, alert, oriented to person, oriented to place, oriented to time, follows commands appropriately, answers questions appropriately, no agnosia, no aphasia, no aproxia Cranial nerve examination: PERRL, EOMI, visual graff intact, corneal reflexes brisk symmetrically, sensory to face intact, mastication intact, no facial asymmetry is present, no dysarthria, hearing is intact symmetrically, soft palate elevates bilaterally upon phonation, gag reflex intact, flexes SCM and trapezius muscles symmetrically with full power, tongue protrudes midline, no atrophy or facial fasiculations present Cerebellar examination: no dysmetria, performs finger to nose and heel to byrd symmetrically without ataxia, no gait ataxia, no truncal ataxia, no difficulty with rapid alternating movements Results - Laboratory Findings CBC and BMP: 03/26/19 12:10 03/26/19 12:10 Abnormal lab findings: Abnormal lab results PT 42.4 Seconds (9.4-12.1) H 03/27/19 00:21 POC Glucose 118 mg/dL (70-99) H 03/26/19 17:46 Magnesium 1.3 mg/dL (1.6-2.6) L 03/26/19 12:10 B-Natriuretic Peptide 240 pg/mL (Less than 100) H 03/26/19 12:10 Consult Discharge Plan - Plan Referrals: Karen Madrid, UNIT ASSISTANT [Advanced Practice Nurse] - (Appointment has been requested.) NONE,PCP [Primary Care Provider] -
[2019-03-27] MEDS ORDERED: Isovue-370 500 ML BOTTLE IVP ONE (11:40)
[2019-03-27 15:55] VITALS: BP 150/76
--- NOTE | 2019-03-27 15:57 | Discharge Summary ---
- NOTES TO OUTPATIENT PROVIDER Notes to Outpatient Provider: Patient will need to follow up with ENT for further evaluation of her dizziness. Patient was asked to hold 2 days of Coumadin for resuming and follow-up INR in 3-4 days Orders not resulted at time of discharge: Pending orders 03/26/19 12:53 ECG 12 lead ECG [ECG] Stat 03/26/19 17:49 NM reno perf SPECT multi [NM] Routine Date of Encounter: 03/27/19 Time of Encounter: 15:55 - Discharge Diagnosis (1) Chest pain Priority: Primary Status: Acute Qualifiers: Chest pain type: unspecified Qualified Code(s): R07.9 - Chest pain, unspecified (2) Atrial fibrillation Priority: Secondary Status: Acute Qualifiers: Atrial fibrillation type: chronic Qualified Code(s): I48.2 - Chronic atrial fibrillation (3) CHF (congestive heart failure) Priority: Secondary Status: Acute Qualifiers: Heart failure type: diastolic Heart failure chronicity: acute Qualified Code(s): I50.31 - Acute diastolic (congestive) heart failure (4) Dizziness Priority: Primary Status: Acute (5) Supratherapeutic INR Priority: Primary Status: Acute (6) Diabetes mellitus type II, controlled, with no complications Priority: Secondary Status: Chronic Qualifiers: Diabetes mellitus fdc insulin use: without fdc use Qualified Code(s): E11.9 - Type 2 diabetes mellitus without complications (7) HLD (hyperlipidemia) Priority: Secondary Status: Chronic Qualifiers: Hyperlipidemia type: unspecified Qualified Code(s): E78.5 - Hyperlipidemia, unspecified (8) Hypertension Priority: Secondary Status: Chronic Qualifiers: Hypertension type: essential hypertension Qualified Code(s): I10 - Essential (primary) hypertension (9) Depression Priority: Secondary Status: Chronic Qualifiers: Depression Type: other depression Qualified Code(s): F32.89 - Other specified depressive episodes (10) GERD (gastroesophageal reflux disease) Priority: Secondary Status: Chronic Qualifiers: Esophagitis presence: without esophagitis Qualified Code(s): K21.9 - Gastro-esophageal reflux disease without esophagitis (11) TIA (transient ischemic attack) Priority: Secondary Status: Acute Hospital course: Ms. Rg is a 68 year old female past medical history of hyperlipidemia chronic A. fib on Coumadin, diabetes, hypertension, obstructive sleep apnea, chronic low back pain, depression, diastolic CHF came in with complain off dizziness associated with elevated blood pressure and chest pressure. Patient chest pain was atypical in nature. Troponins were negative. Patient underwent stress test which was unremarkable. Neurology consultation obtained for dizziness possibly from TIA. Patient's INR was also elevated for and Coumadin was held. Her symptoms of dizziness had resolved by the time she arrived to the floor as her blood pressure was controlled. Possible her symptoms were related only to elevated blood pressure. However per neurology recommendation CTA of head and neck was obtained which did not show any high-grade stenosis. Patient had similar episodes in the past. Patient possibly has vestibular dysfunction and we will need ENT evaluation as outpatient. Patient otherwise is stable to be discharged home to follow ENT and PCP. Discharge discussed with: patient, nurse, safety consultant - Time Spent with Patient Total time spent providing and/or coordinating discharge services: Time spent: Greater than 30 minutes (40) - Discharge Medications Prescriptions: Continued Rosuvastatin [Crestor] 20 mg PO HS Triamterene/Hydrochlorothiazid [Dyazide 37.5-25 Capsule] 1 cap PO DAILY Citalopram Hydrobromide [Citalopram HBr] 40 mg PO DAILY Lisinopril [Zestril] 10 mg PO DAILY Metoprolol [Lopressor] 25 mg PO BID Omeprazole [PriLOSEC] 20 mg PO BID Iron Polysaccharide Complex [Pro Fe] 180 mg PO DAILY Warfarin [Coumadin] 4 mg PO SUTUWEFRSA Metformin HCl 1,000 mg PO BID Warfarin Sodium 6 mg PO MOTH Home Medications: Citalopram Hydrobromide [Citalopram HBr] 40 mg PO DAILY 03/24/17 [History] Rosuvastatin [Crestor] 20 mg PO HS 03/24/17 [History] Triamterene/Hydrochlorothiazid [Dyazide 37.5-25 Capsule] 1 cap PO DAILY 03/24/17 [History] Iron Polysaccharide Complex [Pro Fe] 180 mg PO DAILY 06/14/18 [History] Lisinopril [Zestril] 10 mg PO DAILY 06/14/18 [History] Metoprolol [Lopressor] 25 mg PO BID 06/14/18 [History] Omeprazole [PriLOSEC] 20 mg PO BID 06/14/18 [History] Warfarin [Coumadin] 4 mg PO SUTUWEFRSA 01/07/19 [History] Metformin HCl 1,000 mg PO BID 03/26/19 [History] Warfarin Sodium 6 mg PO MOTH 03/26/19 [History] Allergies/Adverse Reactions: Allergy/AdvReac Type Severity Reaction Status Date / Time No Known Allergies Allergy Verified 03/26/19 15:33 Date of admission: 03/26/19 15:38 Primary care physician: PCP NONE Consults: 03/26/19 17:54 Consult to Neurology [CONS] Routine Consulting Provider: [facility] Reason for Consult: dizziness Call Completed: No Discharging clinician: Julita Jeronimo - Constitutional Vitals: Temp Pulse Resp BP Pulse Ox 98.0 F 79 16 150/76 95 03/27/19 15:49 03/27/19 15:49 03/27/19 15:49 03/27/19 15:49 03/27/19 15:49 Exam: Constitutional: Vitals as noted. Conversant. No Apparent Distress. Respiratory : No accessory muscle use. occasional crackles at base Cardiovascular : irregular HR, +S1, +S2. no murmur, gallop, rubs. No chest wall tenderness GI/Abdominal : Soft, Non-tender, Non-distended Musculoskeletal: no deformity noted. trace edema or cyanosis. no calf tenderness. Neurological: AO X3, CN II-XII grossly intact, grossly normal motor and sensory exam. - Patient Status Disposition: Home, Self-Care Condition: Fair - Discharge Instructions Follow Up With: Karen Madrid, PROJECT COORDINATOR [Advanced Practice Nurse] - (Appointment has been requested.) NONE,PCP [Primary Care Provider] - - Diet and Activity Activity: increase activity as tolerated
--- NOTE | 2019-03-29 15:46 | Electrocardiograph Report ---
[place] [id number] Test Date: 2019-03-26 Pat Name: Ladonna Rg Department: EXAM11 Room: 3B Gender: F [employer]: : 1950 Requested By: Izzy Gonzalez Order Number: [id number] Reading MD: Augustine Mares Measurements Intervals [place] Rate: 107 P: [place]: QRS: 44 QRSD: 108 T: -26 QT: 379 QTc: 506 Interpretive Statements Atrial fibrillation Low voltage, precordial leads Nonspecific T abnormalities, diffuse leads Electronically Signed On 03-29-2019 15:44:27 EDT by Augustine Mares
== END 2019-03-27 18:29 | disposition home or self-care (01) ==
LOC: EMEROOARM 12:47 → 3BNU 12:47 → SUATTDRO 15:38 → 3BNU 16:35
PROVIDERS: ADMIT Student in an Organized Health Care Education/Training Program; ATTEND Internal Medicine